=== PATIENT | female | born 1970 | race Two or more races ===

== ENCOUNTER 2022-10-06 08:49 | Outpatient (REF) | payer OTHER, SELFPAY ==
[2022-10-06 09:04] LABS: MANUAL DIFF FLAG NO
[2022-10-06 09:18] LABS: Basophils Absolute Auto 0.1 X10*3/uL (0.0-0.2); Basophils Percent Auto 0.8 % (0-2); Eosinophils Absolute Auto 0.2 X10*3/uL (0.0-0.4); Eosinophils Percent Auto 2.5 % (0-4); Hematocrit 41.1 % (37.0-47.0); Hemoglobin 12.4 g/dl (12.0-16.0); Imm Gran Abs Auto 0.02 X10*3/uL (0.00-0.03); Imm Gran Pct Auto 0.3 % (0.0-0.4); Lymphocytes Absolute Auto 2.2 X10*3/uL (1.2-4.9); Mean Corpuscular HGB Conc 30.2 g/dl (31.0-35.0); Mean Corpuscular Hemoglobin 26.4 pg (27.0-33.0); Mean Corpuscular Volume 87.4 fL (80.0-98.0); Mean Platelet Volume 9.9 fL (9.4-12.3); Monocytes Absolute Auto 0.4 X10*3/uL (0.1-1.2); Monocytes Percent Auto 5.8 % (2-11); Neutrophils Absolute Auto 4.4 x10*3/uL (2.0-8.3); Neutrophils Percent Auto 60.6 % (45-73); Platelet Count 452 X10*3/uL (160-400); Red Cell Distribution Width 12.8 % (11.0-16.0); White Blood Count 7.3 X10*3/uL (4.8-10.8)
[2022-10-06 09:22] LABS: Appearance Urine Clear; Color Urine Yellow; Glucose Urine UA Negative (Negative); Leukocyte Esterase Urine Negative (Negative); Nitrite Urine Negative (Negative); PH 5.5 (5.0-9.0); Specific Gravity - Urine 1.015 (1.005-1.025); Urine Blood Negative (Negative); Urine Ketones Negative (Negative); Urine Protein Negative (Neg-Trace)
[2022-10-06 10:07] LABS: Alanine Aminotransferase 12 U/L (0-31); Albumin Level 4.2 g/dL (3.5-5.0); Alkaline Phosphatase 111 U/L (39-117); Anion Gap 12 (12-20); Aspartate Amino Transferase 19 U/L (5-31); Bilirubin Total 0.6 mg/dL (0.0-1.0); Blood Urea Nitrogen 10 mg/dL (9-16); Calcium 9.9 mg/dL (8.4-10.2); Carbon Dioxide 26 mmol/L (22-29); Chloride 105 mmol/L (96-108); Cholesterol 218 mg/dL; Estimated Glomerular Filt Rate > 60; Glucose Fasting 95 mg/dL (60-99); HDL Cholesterol 58 mg/dL; LDL Cholesterol Calculated 141 mg/dl; Potassium 5.2 mmol/L (3.3-5.1); Sodium 138 mmol/L (135-145); Total Protein 7.4 g/dL (6.5-8.0); Triglycerides 95 mg/dL
[2022-10-06 10:23] LABS: TSH reflex Free T4 1.13 uIU/mL (0.32-4.0)
== END 2022-10-06 08:50 | disposition home or self-care (01) ==
LOC: HO.LAB 08:49
PROVIDERS: PCP Internal Medicine; Visit Provider Internal Medicine
DX: Z00.00 Encounter for general adult medical examination without abnormal findings (principal); E78.00 Pure hypercholesterolemia, unspecified; R30.0 Dysuria; E55.9 Vitamin D deficiency, unspecified
CPT/HCPCS: 36415; 80053; 80061; 81003; 82306; 84443; 85025

== ENCOUNTER 2024-01-22 10:28 | Outpatient (AMB) | payer OTHER, SELFPAY ==
[2024-01-22 10:32] VITALS: BP 136/88; PULSE 72; O2SAT 98; BMI 41.2
--- NOTE | 2024-01-22 10:32 | MHC.PC.OV ---
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 Senior Solutions Engineer: Not Required per policy Accompanied by: Self / Same As Patient Allergies pecan nut Allergy (Severe, Verified 01/22/24 11:19) HIVES/SWELLING sesame oil [SESAME OIL] Allergy (Severe, Verified 01/22/24 11:19) SWELLING sesame seed Allergy (Severe, Verified 01/22/24 11:19) SWELLING acetaminophen [From PERCOCET] Allergy (Intermediate, Verified 01/22/24 11:19) HIVES oxycodone [From PERCOCET] Allergy (Intermediate, Verified 01/22/24 11:19) HIVES Medication List - Last Reconciled 01/22/24 by El Zhao MD [id number] 8 mg iron-400 mcg-50 mcg (Centrum Silver Women) 1 tab PO DAILY Tobacco use date assessed: 01/22/24 Dental Screening Dental Screen Date: 01/22/24 Did you have a dental visit in the last 12 months?: No Did you have a dental problem in the last 6 months where you did not have access to dental care?: No Was dental information given to patient?: Patient has dentist HPI annual exam HPI Details Patient comes in today for her annual physical examination States that she feels okay She denies any headaches or dizziness Denies any chest pains, no SOB No nausea/vomiting, no abdominal pain No change in bowel habits noted Denies any acute urinary symptoms States that she had a total vaginal hysterectomy (no BSO) at [facility] back in 2009 and was advised then that she no longer needs to get her annual pap smear done She is due for her annual mammogram (she usually gets them done at [facility]) and is also due for her repeat screening colonoscopy (last done in 2019) [facility] Medical History (Updated 01/22/24 @ 12:02 by El Zhao MD) Vitamin D deficiency Morbid obesity with BMI of 40.0-44.9, adult Pure hypercholesterolemia GERD without esophagitis Surgical History (Updated 01/22/24 @ 11:22 by El Zhao MD) History of total vaginal hysterectomy (TVH) Hx of colonoscopy History of tubal ligation (~1996) History of elbow surgery (~2013) Social History Housing: Condominium Patient Tobacco Use Status: Never used Tobacco Tobacco use type: Cigarette e-Cigarette/Vaping Use: Never Used service: No Current occupational status: employed Cognitive needs: No Hearing needs: No Vision needs: Yes Questionnaire PHQ-9 Over the last 2 weeks, how often have you been bothered by any of the following problems? 1. Little interest or pleasure in doing things: not at all 2. Feeling down, depressed, or hopeless: not at all 3. Trouble falling or staying asleep, or sleeping too much: not at all 4. Feeling tired or having little energy: not at all 5. Poor appetite or overeating: not at all 6. Feeling bad about yourself - or that you are a failure or have let yourself or your family down: not at all 7. Trouble concentrating on things, such as reading the newspaper or watching television: not at all 8. Moving or speaking so slowly that other people could have noticed. Or the opposite - being so fidgety or restless that you have been moving around a lot more than usual: not at all 9. Thoughts that you would be better off or of hurting yourself in some way: not at all Total score: 0 Depression Screening Interpretation: Negative Depression Screening Done: Yes 87032 - PHQ-9 Billing: Yes Source: Developed by Drs. Saturnino Correia, Kimber Decker, Win Stack and colleagues, with an educational louise from [employer]. Thrive Questionnaire Date Thrive assessed: 01/22/24 I am a: Patient What is your living situation today?: I have a steady place to live Within the past 12 months, did the food you bought not last and you didn't have the money to get more?: Never true Within the past 12 months, did you worry whether your food would run out before you got money to buy more?: Never true Do you have trouble paying for medicines?: No Do you have trouble getting transportation to medical appointments?: No Do you have trouble paying your heating and electricity bill?: No Do you have trouble taking care of your child, family member or friend?: No Do you have trouble with day-to-day activities such as bathing, preparing meals, shopping, managing finances, etc.?: No Are you currently unemployed and looking for a job?: No Are you interested in more education?: No Please select the resources that you would like help with: None Currently or been in a relationship where the following occur: No concerns reported THRIVE Score: 0 AUDIT C Alcohol Use Questionnaire (AUDIT-C) 1. How often do you have a drink containing alcohol?: Never 3. How often do you have six or more drinks on one occasion?: Never Total Score: 0 Score Reviewed/Action Taken: Yes AVE-7 AMB Questionnaire AVE-7 Date AVE - 7 assessed: 01/22/24 Feeling nervous, anxious, or on edge: 0 = Not at all Not being able to stop or control worryin = Not at all Worrying too much about different things: 0 = Not at all Trouble relaxin = Not at all Being so restless that it is hard to sit still: 0 = Not at all Becoming easily annoyed or irritable: 0 = Not at all Feeling afraid as if something awful might happen: 0 = Not at all Total AVE-7 score (0-4 normal; 5-9 mild; 10-14 moderate; 15-21 severe): 0 Source: Developed by Drs. Saturnino Correia, Kimber Decker, Win Stack and colleagues, with an educational louise from [employer]. Review of Systems Const Denies chills, Denies fatigue, Denies fever(s), Denies headache(s) and Denies malaise Eyes Denies blurry vision, Denies change in vision, Denies irritation and Denies itchy eyes ENT Denies dysphagia, Denies dizziness, Denies otalgia, Denies headache(s), Denies nasal congestion, Denies neck pain, Denies odynophagia, Denies sinus pain and Denies sore throat Card Denies chest pain, Denies rapid heart rate, Denies irregular heart rhythm, Denies palpitations and Denies dyspnea Resp Denies chest congestion, Denies cough, Denies dyspnea and Denies wheezing GI Denies abdominal pain, Denies bloating, Denies constipation, Denies dysphagia, Denies heartburn, Denies diarrhea, Denies nausea, Denies odynophagia and Denies vomiting Denies hematuria, Denies urinary frequency, Denies dysuria, Denies urinary incontinence and Denies urinary urgency Musc Denies back pain, Denies arthralgias, Denies joint swelling, Denies muscle weakness and Denies neck pain Skin/Breast Denies breast pain, Denies breast mass, Denies change in pigmentation, Denies lesions, Denies rash and Denies unusual bruising Neuro Denies dizziness, Denies headache(s) and Denies paresthesias Psych Denies anxiety and Denies depression Endo Denies fatigue and Denies palpitations Cornelius/Lymph Denies easy bruising Aller/Immun Denies itchy eyes and Denies wheezing Physical exam (Primary Care) Vital Signs: Last Vital Signs Pulse 72 01/22/24 10:32 BP 136/88 01/22/24 10:32 Pulse Ox 98 01/22/24 10:32 Oxygen Delivery Method Room Air 01/22/24 10:32 BMI result Body Mass Index 41.2 Tobacco/Smoking Status: Tobacco use Status Tobacco use date assessed 01/22/24 01/22/24 10:33 Patient Tobacco Use Status Never used Tobacco 01/22/24 10:33 Tobacco use type Cigarette 01/22/24 10:33 e-Cigarette/Vaping Use Never Used 01/22/24 10:33 PHQ-9: PHQ-9 Score PHQ-9: Total score 0 01/22/24 10:33 Depression Screening Interpretation: Negative Thrive Assessment: Date of Thrive Assessment Date Thrive assessed 01/22/24 01/22/24 10:33 Currently or been in a relationship where the following occur: No concerns reported Const General: no acute distress, alert and awake Orientation/consciousness: patient oriented x3 HENMT Head: Yes normocephalic and Yes atraumatic Ears: external ears normal, TM's normal bilaterally and EAC's normal General nose exam: No nasal discharge present Face and sinus: Yes normal facial exam and Yes sinuses nontender Teeth and gingiva: dentition normal Throat: Yes posterior oropharynx normal and Yes tonsils normal (but appear more prominent that normal bilaterally (chronic)) Eyes Eyelids: Yes eyelids normal Conjunctivae: conjunctivae normal Pupils: Equal, round and reactive pupils present EOM: EOMs intact bilaterally Neck Neck: Yes supple and Yes lymphadenopathy ((+) palpable bilateral cervical LN (chronic) but no tenderness on palpation) Thyroid: Thyroid normal Resp Auscultation: clear to auscultation bilaterally, no rales and no wheezes Cardio Rate: regular rate Rhythm: regular rhythm Heart sounds: no murmurs GI Palpation (GI): Soft to palpation, nontender and No hepatosplenomegaly present Auscultation: normal bowel sounds General: Yes no CVA tenderness Back/Spine/Pelvis Back: no CVA tenderness Thoracic/Lumbar Spine: thoracic and lumbar spine normal to inspection Skin Lesions: no lesions Rashes: no rashes Neuro General: patient oriented x3, moves all extremities, no focal motor deficits and CN's II-XI intact bilaterally Cranial nerves: Yes Equal, round and reactive pupils present Cognition (Neuro): normal cognition Gait exam (Neuro): Normal gait present Extrem General: Yes no clubbing, cyanosis or edema Assessment and Plan Assessment & Plan (1) Annual physical exam: Code(s): Z00.00 - Encounter for general adult medical examination without abnormal findings Plan: Check labs She is now due for her repeat colonoscopy (last done in 2018) and for her annual breast cancer screening (which she usually gets done at [facility]) Will also send her for BMD for osteoporosis screening (2) Pure hypercholesterolemia: Code(s): E78.00 - Pure hypercholesterolemia, unspecified Plan: Have advised patient that her cholesterol levels were still elevated when they were last checked over a year ago in September 2022, with her total cholesterol at 218 mg/dl and LDL cholesterol at 141 mg/dl Reinforced low cholesterol diet Will recheck her fasting lipids [facility] for follow up (3) GERD without esophagitis: Code(s): K21.9 - Gastro-esophageal reflux disease without esophagitis Plan: Dietary restrictions reinforced She used to take Pantoprazole 40 mg QD but has not needed any Rx in a while now (4) Cervical lymphadenopathy: Code(s): R59.0 - Localized enlarged lymph nodes Plan: Patient states that she's always had frequent issues with her tonsils when she was growing up and that these are also likely a chronic issue for her but these do not appear to be active at this time as there are not significantly enlarged and are non-tender on palpation Will check her CBC again for follow up / further evaluation (5) Vitamin D deficiency: Code(s): E55.9 - Vitamin D deficiency, unspecified Plan: Will start her on Vitamin D supplements - Rx for Calcium carbonate plus Vitamin D3 sent to pharmacy (6) Morbid obesity with BMI of 40.0-44.9, adult: Code(s): E66.01 - Morbid (severe) obesity due to excess calories; Z68.41 - Body mass index [BMI] 40.0-44.9, adult Plan: Reinforced diet/exercise as tolerated/lose weight (7) Colon cancer screening: Code(s): Z12.11 - Encounter for screening for malignant neoplasm of colon Plan: Will refer her back to GI for repeat colonoscopy (8) Breast cancer screening by mammogram: Code(s): Z12.31 - Encounter for screening mammogram for malignant neoplasm of breast Plan: Will send her for her annual screening mammogram - patient usually gets her mammograms done at [facility] (9) Osteoporosis screening: Code(s): Z13.820 - Encounter for screening for osteoporosis Plan: Will send her for BMD - this will be her index screen Plan Follow up in 6 months Orders: Orders MM tomosynthesis screening BI Today Z12.31 - Encounter for screening mammogram for malignant neoplasm of breast C Reactive Protein Today R59.0 - Localized enlarged lymph nodes Complete Blood Count Auto Diff Today D64.9 - Anemia, unspecified, Z00.00 - Encounter for general adult medical examination without abnormal findings Comprehensive [place]. Panel Fast Today E78.00 - Pure hypercholesterolemia, unspecified, Z00.00 - Encounter for general adult medical examination without abnormal findings Lipid Panel Today E78.00 - Pure hypercholesterolemia, unspecified, Z00.00 - Encounter for general adult medical examination without abnormal findings TSH reflex Free T4 Today E78.00 - Pure hypercholesterolemia, unspecified, Z00.00 - Encounter for general adult medical examination without abnormal findings UA CC w/rflx Micro + Cult Today R30.0 - Dysuria, Z00.00 - Encounter for general adult medical examination without abnormal findings Vitamin D 25-OH Total Today E55.9 - Vitamin D deficiency, unspecified, Z00.00 - Encounter for general adult medical examination without abnormal findings Erythrocyte Sedimentation Rate Today M79.7 - Fibromyalgia, R59.0 - Localized enlarged lymph nodes XR DEXA axial skeleton Today Z78.0 - Asymptomatic menopausal state Referrals Gastroenterology Referral Z12.11 - Encounter for screening for malignant neoplasm of colon Medications: New calcium carbonate-vitamin D3 600 mg-25 mcg (1,000 unit) 1 cap PO DAILY 90 days 90 caps 3RF Coding Level of Care Code Est Pt Prev Care 40-64y(31415) Diagnoses Annual physical exam Z00.00 Pure hypercholesterolemia E78.00 GERD without esophagitis K21.9 Cervical lymphadenopathy R59.0 Vitamin D deficiency E55.9 Morbid obesity with BMI of 40.0-44.9, adult E66.01; Z68.41 Colon cancer screening Z12.11 Breast cancer screening by mammogram Z12.31 Osteoporosis screening Z13.820
== END 2024-01-22 11:30 | disposition home or self-care (01) ==
PROVIDERS: PCP Internal Medicine; Visit Provider Internal Medicine
DX: Z00.00 Encounter for general adult medical examination without abnormal findings (principal); E66.01 Morbid (severe) obesity due to excess calories; Z68.41 Body mass index [BMI] 40.0-44.9, adult; E78.00 Pure hypercholesterolemia, unspecified; K21.9 Gastro-esophageal reflux disease without esophagitis; R59.0 Localized enlarged lymph nodes; E55.9 Vitamin D deficiency, unspecified; Z12.11 Encounter for screening for malignant neoplasm of colon; Z12.31 Encounter for screening mammogram for malignant neoplasm of breast; Z13.820 Encounter for screening for osteoporosis
CPT/HCPCS: 99396

== ENCOUNTER 2024-02-18 08:13 | Outpatient (REF) | payer OTHER, SELFPAY ==
--- NOTE | ~2024-02-18 | MM_ITS ---
EXAMINATION: BONE DENSITOMETRY CLINICAL INDICATION: Asymptomatic menopausal state. COMPARISON: This is the patient's baseline examination. TECHNIQUE: Using a [employer] DXA System (software version: 13.1) manufactured by [employer], dual-energy x-ray absorptiometry was performed of the lumbar spine and left hip. The images are of good technical quality. Summary results are attached. FINDINGS: LEFT FEMUR, NECK: BMD 1.030 g/cm2, Z-score 0.4, T-score -0.1, normal. LEFT FEMUR, TOTAL: BMD 1.069 g/cm2, Z-score 0.5, T-score 0.5, normal. AP SPINE L1-L4: BMD 1.213 g/cm2, Z-score 0.2, T-score 0.3, normal. IDENTIFIED RISK FACTORS: Early menopause, secondary osteoporosis, hysterectomy. HISTORY OF FRACTURE: None listed. MEDICATIONS: Multivitamin. MM/XR DEXA axial skeleton IMPRESSION: 1. DIAGNOSIS: Normal bone density based on the lowest T-score value of -0.1 in the femoral neck applying World Health Organization criteria. 2. 10-YEAR FRACTURE RISK PREDICTION, FRAX: According to the guidelines, FRAX calculation should only be performed on patients in the osteopenia bone density category. Therefore, FRAX was not performed on this patient. 3. Treatment Recommendations: NOF guidelines recommend consideration for treatment in postmenopausal women and men age 50 and older presenting with the following: -A hip or vertebral (clinical or morphometric) fracture. -T-score less than or equal to -2.5 at the femoral neck or spine after appropriate evaluation to exclude secondary causes. -Low bone mass at the hip or spine and a 10-year fracture probability by FRAX of greater than or equal to 3% for hip fracture or greater than or equal to 20% for major osteoporotic fracture based on the [place] adapted WHO algorithm. 4. Other Recommendations: All treatment decisions require clinical judgment and consideration of individual patient factors, including patient preferences, comorbidities, previous drug use, risk factors not captured in the FRAX model (e.g. frailty, falls, vitamin D deficiency, increased bone turnover, interval significant decline in bone density) and possible under or overestimation of fracture risk by FRAX. FUTURE SCAN RECOMMENDATION: People with diagnosed cases of osteoporosis or at high risk for fracture should have regular bone mineral density tests. For patients eligible for Medicare, routine testing is allowed once every 2 years. The testing frequency can be increased to one year for patients who have rapidly progressing disease, those who are receiving or discontinuing medical therapy to restore bone mass, or have additional risk factors. Electronically signed by: Parker Wallace MD 02/26/2024 08:49 AM EDT RP
== END 2024-02-18 08:14 | disposition home or self-care (01) ==
LOC: HO.MAMMO 08:13
PROVIDERS: PCP Internal Medicine; Visit Provider Internal Medicine
DX: Z13.820 Encounter for screening for osteoporosis (principal); Z78.0 Asymptomatic menopausal state
CPT/HCPCS: 77080

== ENCOUNTER 2024-02-29 08:44 | Outpatient (REF) | payer SELFPAY ==
[2024-02-29 09:16] LABS: MANUAL DIFF FLAG NO
[2024-02-29 10:16] LABS: Alanine Aminotransferase 13 U/L (0-31); Albumin Level 3.9 g/dL (3.5-5.0); Alkaline Phosphatase 112 U/L (39-117); Anion Gap 11 (12-20); Aspartate Amino Transferase 20 U/L (5-31); Bilirubin Total 0.4 mg/dL (0.0-1.0); Blood Urea Nitrogen 12 mg/dL (9-16); C Reactive Protein 0.58 mg/dL (< or = 0.50); Calcium 9.7 mg/dL (8.4-10.2); Carbon Dioxide 25 mmol/L (22-29); Chloride 109 mmol/L (96-108); Cholesterol 209 mg/dL (<200); Estimated Glomerular Filt Rate > 60; Glucose Fasting 98 mg/dL (60-99); HDL Cholesterol 53 mg/dL (>40); LDL Cholesterol Calculated 136 mg/dL (<100); Potassium 4.1 mmol/L (3.3-5.1); Sodium 141 mmol/L (135-145); Total Protein 7.6 g/dL (6.5-8.0); Triglycerides 101 mg/dL (<150)
[2024-02-29 10:21] LABS: Basophils Absolute Auto 0.1 X10*3/uL (0.0-0.2); Basophils Percent Auto 0.8 % (0-2); Eosinophils Absolute Auto 0.2 X10*3/uL (0.0-0.4); Eosinophils Percent Auto 3.2 % (0-4); Hematocrit 39.1 % (37.0-47.0); Hemoglobin 12.2 g/dl (12.0-16.0); Imm Gran Abs Auto 0.01 X10*3/uL (0.00-0.03); Imm Gran Pct Auto 0.2 % (0.0-0.4); Lymphocytes Absolute Auto 2.3 X10*3/uL (1.2-4.9); Lymphocytes Percent Auto 36.1 % (20-40); Mean Corpuscular HGB Conc 31.2 g/dl (31.0-35.0); Mean Corpuscular Hemoglobin 27.1 pg (27.0-33.0); Mean Corpuscular Volume 86.7 fL (80.0-98.0); Mean Platelet Volume 10.2 fL (9.4-12.3); Monocytes Absolute Auto 0.4 X10*3/uL (0.1-1.2); Monocytes Percent Auto 6.7 % (2-11); Neutrophils Absolute Auto 3.4 x10*3/uL (2.0-8.3); Platelet Count 440 X10*3/uL (160-400); Red Blood Count 4.51 X10*6/uL (4.20-5.50); White Blood Count 6.3 X10*3/uL (4.8-10.8)
[2024-02-29 10:27] LABS: TSH reflex Free T4 1.43 uIU/mL (0.32-4.0); Vitamin D 25-OH Total 20.4 ng/mL (>30)
[2024-02-29 11:05] LABS: Erythrocyte Sedimentation Rate 28 MM/HR (0-20)
[2024-02-29 11:42] LABS: Appearance Urine Clear; Color Urine Yellow; Glucose Urine UA Negative (Negative); Leukocyte Esterase Urine Negative (Negative); Nitrite Urine Negative (Negative); PH 5.5 (5.0-9.0); Urine Blood Negative (Negative); Urine Ketones Negative (Negative); Urine Protein Negative (Neg-Trace)
== END 2024-02-29 08:45 | disposition home or self-care (01) ==
LOC: HO.LAB 08:44
PROVIDERS: PCP Internal Medicine; Visit Provider Internal Medicine
DX: Z00.00 Encounter for general adult medical examination without abnormal findings (principal); D64.9 Anemia, unspecified; E78.00 Pure hypercholesterolemia, unspecified; R59.0 Localized enlarged lymph nodes; R30.0 Dysuria; E55.9 Vitamin D deficiency, unspecified; M79.7 Fibromyalgia
CPT/HCPCS: 36415; 80053; 80061; 81003; 82306; 84443; 85025; 85652; 86140

== ENCOUNTER 2024-06-12 13:50 | Outpatient (AMB) | payer BC, SELFPAY ==
--- NOTE | 2024-06-12 14:02 | MHC.OFFVIS ---
Vital Signs 06/12/24 14:14 Height 5 ft Weight 214 lb 11.684 oz BMI 41.9 BP 160/91 H Blood Pressure Location Rt brachial Position Sitting Pulse 94 Intake Visit Reasons: pre colonoscopy Intake Note: Kristan presents as a new patient for colonoscopy screening. CC: Patient c/o constipation, hemorrhoids, and blood in stool sometimes. Last colonoscopy 5 years ago per patient. 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 She is referred by El Zhao. PMX Morbid obesity High cholesterol GERD Cervical lymphadenopathy Tubular adenoma * SURGICAL HISTORY Hysterectomy Tubal ligation Left elbow surgery Colonoscopy-2019= hyperplastic polyp Jeff b-datum; Laboratory Tests 02/29/24 09:09 WBC 6.3 Hgb 12.2 Hct 39.1 Plt Count 440 H Estimated GFR > 60 Total Bilirubin 0.4 AST 20 ALT 13 Alkaline Phosphatase 112 TSH 1.43 TODAYS VISIT She had 3 prior scopes and there were 3 TA's removed at [facility] [place] on her initial scope. She suffers CIC and when she is really back up she will have pain in the right flank. She will only move her bowels q 2-3 days and they are very hard. She has no response with all OTC laxatives and at times has had to use multiple enemas. Even with this she had to push hard. We will start a trial of Linzess at the highest dose of 290 and titrate to affect her side effect and consider other strategies if this does not work life changing the medication or adding an [id number] to this. The patient does have any family history of anybody else suffering severe constipation. Her very hard stools and frequent pushing does cause her to have some bleeding and painful hemorrhoids. She denies any cardiac or respiratory problems. No prior problems with anesthesia or sedation. No ID problems. She had prior TA's but she denies any known hx of CRC or polyps. [facility] Medical History (Updated 06/12/24 @ 14:38 by YOLIS Blancas) Annual physical exam Cervical cancer screening Colon cancer screening Osteoporosis screening Breast cancer screening by mammogram Vitamin D deficiency Morbid obesity with BMI of 40.0-44.9, adult Pure hypercholesterolemia GERD without esophagitis Surgical History (Updated 01/22/24 @ 11:22 by El Zhao MD) History of total vaginal hysterectomy (TVH) Hx of colonoscopy History of tubal ligation (~1996) History of elbow surgery (~2013) Social History Housing: Condominium Patient Tobacco Use Status: Never used Tobacco Tobacco use type: Cigarette e-Cigarette/Vaping Use: Never Used service: No Current occupational status: employed Cognitive needs: No Hearing needs: No Vision needs: Yes Review of Systems Const Denies fatigue, Denies fever(s), Denies night sweats, Denies poor appetite and Denies weight loss Eyes Details: glasses Reports requires corrective lenses ENT Reports Normal hearing present, Denies dental pain, Denies dysphagia, Denies hearing loss, Denies mouth pain, Denies odynophagia, Denies throat swelling, Denies tongue swelling and Reports other (Dentition adequate) Card Reports no additional complaints Resp Reports no additional complaints GI Details: Denies abdominal pain, Denies melena, Reports bloating, Reports hematochezia, Reports constipation, Denies GI cramping, Denies dysphagia, Denies excessive flatus, Denies early satiety, Denies heartburn, Denies diarrhea, Denies nausea, Denies odynophagia, Denies vomiting and Denies hematemesis Skin/Breast Denies pruritus, Denies lesions, Denies rash and Denies jaundice Neuro Reports Normal hearing present and Denies Abnormal speech present Endo Denies fatigue Aller/Immun Denies throat swelling and Denies tongue swelling Physical Exam Const General: cooperative, no acute distress, well developed and well groomed Nutritional Appearance: well nourished and obese Orientation/consciousness: oriented to person, oriented to place and oriented to time Limitations: No language barrier HEENT Head: Yes normocephalic and Yes atraumatic Eyes General: appearance normal, both eyes and all related structures Pupils: Equal, round and reactive pupils present Neck Neck: Yes normal visual inspection and Yes no lymphadenopathy Thyroid: Thyroid normal Resp Effort & Inspection: normal respiratory effort and able to speak in complete sentences Auscultation: clear to auscultation bilaterally Cardio Rate: regular rate Rhythm: regular rhythm Heart sounds: Normal, physiologic split S2 sound present Peripheral pulses: radial pulses present and posterior tibial pulses present GI Inspection: No distended, Yes Abdominal panniculus present, Yes obesity and Yes striae Palpation (GI): Soft to palpation, nontender, no guarding, not rigid and No hepatosplenomegaly present Percussion: Yes normal to percussion Auscultation: normal bowel sounds Rectal Exam - Female: deferred Abdomen image: 1. surgical scars Skin General skin exam: no rashes or lesions noted, turgor normal, skin not dry, no jaundice, No spider nevi and no striae Rashes: no rashes Nails: normal Neuro General: oriented to person, oriented to place and oriented to time Cranial nerves: Yes Equal, round and reactive pupils present and Yes Normal hearing present Speech: No Abnormal speech present Extrem General: Yes normal to inspection, No clubbing, No cyanosis and No edema Psych Appearance: grossly normal and well kempt Mental Status: mental status grossly normal Speech and movement: Normal speech and movement present Affect: normal affect Attitude: cooperative Thought process: Normal thought process present and not confabulating Thought content: Normal thought content present Insight: Good insight present (Psych) Judgement: Good judgement present (Psych) Assessment & Plan Assessment & Plan (1) Tubular adenoma of colon: Comment: Removed prior to 2019 uncertain where Code(s): D12.6 - Benign neoplasm of colon, unspecified Category: Medical (2) Morbid obesity with BMI of 40.0-44.9, adult: Code(s): E66.01 - Morbid (severe) obesity due to excess calories; Z68.41 - Body mass index [BMI] 40.0-44.9, adult Category: Medical (3) Chronic idiopathic constipation: Code(s): K59.04 - Chronic idiopathic constipation Category: Medical Plan She had 3 prior scopes and there were 3 TA's removed at [facility] [place] on her initial scope. She suffers CIC and when she is really back up she will have pain in the right flank. She will only move her bowels q 2-3 days and they are very hard. She has no response with all OTC laxatives and at times has had to use multiple enemas. Even with this she had to push hard. We will start a trial of Linzess at the highest dose of 290 and titrate to affect her side effect and consider other strategies if this does not work life changing the medication or adding an [id number] to this. The patient does have any family history of anybody else suffering severe constipation. Her very hard stools and frequent pushing does cause her to have some bleeding and painful hemorrhoids. She denies any cardiac or respiratory problems. No prior problems with anesthesia or sedation. No ID problems. She had prior TA's but she denies any known hx of CRC or polyps. Orders: Orders Colonoscopy - GI Use Only Today D12.6 - Benign neoplasm of colon, unspecified Medications: New sod sulf-pot chloride-mag sulf 1.479-0.188- 0.225 gram (Sutab) PO PER PKG DIR for colonoscopy prep 24 tabs 0RF linaclotide (Linzess) 290 mcg PO QAM 30 days 30 caps 6RF K59.04 - Chronic idiopathic constipation Coding Level of Care Code New Pt Level 3 (49884) Diagnoses Tubular adenoma of colon D12.6 Morbid obesity with BMI of 40.0-44.9, adult E66.01; Z68.41 Chronic idiopathic constipation K59.04
[2024-06-12 14:14] VITALS: BP 160/91; PULSE 94; BMI 41.9
== END 2024-06-12 15:12 | disposition home or self-care (01) ==
PROVIDERS: PCP Internal Medicine; Visit Provider Nurse Practitioner
DX: D12.6 Benign neoplasm of colon, unspecified (principal); E66.01 Morbid (severe) obesity due to excess calories; Z68.41 Body mass index [BMI] 40.0-44.9, adult; K59.04 Chronic idiopathic constipation
CPT/HCPCS: 99203

== ENCOUNTER → 2024-06-12 13:50 | Outpatient (BNVA) | payer SELFPAY | PROVIDERS: PCP Internal Medicine; Visit Provider Nurse Practitioner ==

== ENCOUNTER 2024-07-24 16:38 | Outpatient (AMB) | payer SELFPAY ==
--- NOTE | 2024-07-24 16:39 | A.OFFPC_ITS ---
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 Accompanied by: Self / Same As Patient Allergies pecan nut Allergy (Severe, Verified 07/24/24 17:06) HIVES/SWELLING sesame oil [SESAME OIL] Allergy (Severe, Verified 07/24/24 17:06) SWELLING sesame seed Allergy (Severe, Verified 07/24/24 17:06) SWELLING acetaminophen [From PERCOCET] Allergy (Intermediate, Verified 07/24/24 17:06) HIVES oxycodone [From PERCOCET] Allergy (Intermediate, Verified 07/24/24 17:06) HIVES dust Allergy (Unknown, Uncoded 07/24/24 17:06) hives Medication List - Last Reconciled 07/24/24 by El Zhao MD calcium carbonate-vitamin D3 600 mg-25 mcg (1,000 unit) 1 cap PO DAILY 90 days linaclotide (Linzess) 290 mcg PO QAM 30 days exnjovwa-kaf-tjfm-FA-vit K-lut 8 mg iron-400 mcg-50 mcg (Centrum Silver Women) 1 tab PO DAILY sod sulf-pot chloride-mag sulf 1.479-0.188- 0.225 gram (Sutab) PO PER PKG DIR fo r colonoscopy prep Tobacco use date assessed: 07/24/24 Dental Screening Dental Screen Date: 07/24/24 Did you have a dental visit in the last 12 months?: Yes Did you have a dental problem in the last 6 months where you did not have access to dental care?: No Was dental information given to patient?: Patient has dentist HPI 6 month f/u HPI Details Patient comes in today for her follow up visit States that she has been experiencing recurrent lower abdominal/pelvic pain lately Notes that the pain often feels worse when she is sitting as she feels more pressure over the pubic area of her pelvic bone She has also noticed increased pain over the same area with prolonged walking Patient reports that she had a bladder sling procedure done over 10 years ago and is concerned that her symptoms may be due to her sling now being out of place or malfunctioning States that she had the sling placed after her hysterectomy years ago when she was also noted to have bladder prolapse with increased symptoms She denies any dysuria, nocturia or urinary frequency States that she feels okay otherwise She denies any headaches or dizziness Denies any chest pains, no shortness of breath No nausea/vomiting, no abdominal pain No change in bowel habits noted States that she is scheduled for her repeat colonoscopy in August 2024 She would like to know how her labs and bone density that were both done back in January 2024 came out [facility] Medical History (Updated 07/24/24 @ 17:17 by El Zhao MD) Cervical cancer screening Colon cancer screening Osteoporosis screening Breast cancer screening by mammogram Vitamin D deficiency Morbid obesity with BMI of 40.0-44.9, adult Pure hypercholesterolemia GERD without esophagitis Surgical History History of total vaginal hysterectomy (TVH) Hx of colonoscopy History of tubal ligation (~1996) History of elbow surgery (~2013) Social History Housing: Condominium Patient Tobacco Use Status: Never used Tobacco Tobacco use type: Cigarette e-Cigarette/Vaping Use: Never Used service: No Current occupational status: employed Cognitive needs: No Hearing needs: No Vision needs: Yes Questionnaire PHQ-9 Over the last 2 weeks, how often have you been bothered by any of the following problems? 1. Little interest or pleasure in doing things: not at all 2. Feeling down, depressed, or hopeless: not at all 3. Trouble falling or staying asleep, or sleeping too much: not at all 4. Feeling tired or having little energy: not at all 5. Poor appetite or overeating: not at all 6. Feeling bad about yourself - or that you are a failure or have let yourself or your family down: not at all 7. Trouble concentrating on things, such as reading the newspaper or watching television: not at all 8. Moving or speaking so slowly that other people could have noticed. Or the opposite - being so fidgety or restless that you have been moving around a lot more than usual: not at all 9. Thoughts that you would be better off or of hurting yourself in some way: not at all Total score: 0 Depression Screening Interpretation: Negative Depression Screening Done: Yes 14692 - PHQ-9 Billing: Yes Source: Developed by Drs. Saturnino Correia, Kimber Decker, Win Stack and colleagues, with an educational louise from [employer]. Thrive Questionnaire Date Thrive assessed: 07/24/24 I am a: Patient What is your living situation today?: I have a steady place to live Within the past 12 months, did the food you bought not last and you didn't have the money to get more?: Never true Within the past 12 months, did you worry whether your food would run out before you got money to buy more?: Never true Do you have trouble paying for medicines?: No Do you have trouble getting transportation to medical appointments?: No Do you have trouble paying your heating and electricity bill?: No Do you have trouble taking care of your child, family member or friend?: No Do you have trouble with day-to-day activities such as bathing, preparing meals, shopping, managing finances, etc.?: No Are you currently unemployed and looking for a job?: No Are you interested in more education?: No Please select the resources that you would like help with: None Currently or been in a relationship where the following occur: No concerns reported THRIVE Score: 0 AUDIT C Alcohol Use Questionnaire (AUDIT-C) 1. How often do you have a drink containing alcohol?: Never 3. How often do you have six or more drinks on one occasion?: Never Total Score: 0 Score Reviewed/Action Taken: Yes AVE-7 AMB Questionnaire AVE-7 Date A[address] - 7 assessed: 07/24/24 Feeling nervous, anxious, or on edge: 0 = Not at all Not being able to stop or control worryin = Not at all Worrying too much about different things: 0 = Not at all Trouble relaxin = Not at all Being so restless that it is hard to sit still: 0 = Not at all Becoming easily annoyed or irritable: 0 = Not at all Feeling afraid as if something awful might happen: 0 = Not at all Total AVE-7 score (0-4 normal; 5-9 mild; 10-14 moderate; 15-21 severe): 0 Source: Developed by Drs. Saturnino Correia, Kimber Decker, Win Stack and colleagues, with an educational louise from [employer]. Review of Systems Const Denies chills, Denies fatigue, Denies fever(s) and Denies headache(s) ENT Denies dysphagia, Denies dizziness, Denies otalgia, Denies headache(s), Denies neck pain, Denies odynophagia and Denies sore throat Card Denies chest pain, Denies irregular heart rhythm, Denies palpitations and Denies dyspnea Resp Denies chest congestion, Denies cough and Denies dyspnea GI Denies abdominal pain, Denies constipation, Denies dysphagia, Denies heartburn, Denies diarrhea, Denies nausea, Denies odynophagia and Denies vomiting Denies urinary frequency, Denies dysuria, Reports pelvic pain (mostly over the lower pelvic/pubic area - see HPI) and Denies urinary urgency Musc Denies back pain, Denies arthralgias and Denies neck pain Skin/Breast Denies rash Neuro Denies dizziness, Denies headache(s) and Denies paresthesias Psych Denies anxiety and Denies depression Endo Denies fatigue and Denies palpitations Cornelius/Lymph Denies easy bruising Physical exam (Primary Care) Vital Signs: Last Vital Signs Pulse 93 07/24/24 16:40 BP 160/92 H 07/24/24 17:09 Pulse Ox 95 07/24/24 16:40 Oxygen Delivery Method Room Air 07/24/24 16:40 BMI result Body Mass Index 42.3 Tobacco/Smoking Status: Tobacco use Status Tobacco use date assessed 07/24/24 07/24/24 16:44 Patient Tobacco Use Status Never used Tobacco 07/24/24 16:44 Tobacco use type Cigarette 07/24/24 16:44 e-Cigarette/Vaping Use Never Used 07/24/24 16:44 PHQ-9: PHQ-9 Score PHQ-9: Total score 0 07/24/24 17:16 Depression Screening Interpretation: Negative Thrive Assessment: Date of Thrive Assessment Date Thrive assessed 07/24/24 07/24/24 16:44 Currently or been in a relationship where the following occur: No concerns reported Const General: no acute distress and alert HENMT Ears: TM's normal bilaterally and EAC's normal Throat: Yes posterior oropharynx normal and Yes tonsils normal (but appear more prominent that normal bilaterally (chronic)) Neck Neck: Yes supple and No lymphadenopathy Thyroid: Thyroid normal Resp Auscultation: clear to auscultation bilaterally, no rales and no wheezes Cardio Rate: regular rate Rhythm: regular rhythm Heart sounds: no murmurs GI Palpation (GI): Soft to palpation and nontender Auscultation: normal bowel sounds General: Yes no CVA tenderness Back/Spine/Pelvis Back: no CVA tenderness Thoracic/Lumbar Spine: thoracic and lumbar spine normal to inspection Skin Rashes: no rashes Extrem General: Yes no clubbing, cyanosis or edema Results Reviewed Results Reviewed: Laboratory Tests 02/29/24 09:09 WBC 6.3 Hgb 12.2 Hct 39.1 Plt Count 440 H ESR 28 H Sodium 141 Potassium 4.1 Creatinine 0.96 Estimated GFR > 60 Fasting Glucose 98 Calcium 9.7 AST 20 ALT 13 C-Reactive Protein 0.58 H Triglycerides 101 Cholesterol 209 H LDL Cholesterol, Calc 136 H HDL Cholesterol 53 25-OH Vitamin D Total 20.4 L TSH 1.43 Ur Specific Boley 1.020 Urine Protein Negative Urine Glucose (UA) Negative Urine Blood Negative Urine Nitrite Negative Ur Leukocyte Esterase Negative Coding Level of Care Code Est Pt Level 4 (50782) Diagnoses Pure hypercholesterolemia E78.00 GERD without esophagitis K21.9 Vitamin D deficiency E55.9 Pelvic pain R10.2 Chronic idiopathic constipation K59.04 Morbid obesity with BMI of 40.0-44.9, adult E66.01; Z68.41 Additional Codes PHQ-9 - 82809 - PHQ-9 Billing: Yes ([id number]) Assessment & Plan Assessment & Plan (1) Pure hypercholesterolemia: Code(s): E78.00 - Pure hypercholesterolemia, unspecified Category: Medical Plan: Results of her labs done back in January 2024 reviewed and discussed with patient - have advised her that her cholesterol levels were still elevated although they have improved slightly from her numbers back in 2022 Reinforce low-cholesterol diet Will have her recheck her labs and fasting lipids in 6 months before her annual physical exam for follow-up (2) GERD without esophagitis: Code(s): K21.9 - Gastro-esophageal reflux disease without esophagitis Category: Medical Plan: Dietary restrictions reinforced She used to take Pantoprazole 40 mg QD but has not needed any Rx in a while now (3) Vitamin D deficiency: Code(s): E55.9 - Vitamin D deficiency, unspecified Category: Medical Plan: Patient is advised that her vitamin-D level was still low her labs done back in January 2024 States that she has been taking multivitamins regularly but have advised her that this is not enough and that she should at least start back on her calcium plus vitamin-D supplement daily (4) Pelvic pain: Code(s): R10.2 - Pelvic and perineal pain Category: Medical Plan: Will send patient for pelvic ultrasound for further evaluation Will also refer her to [facility] for further evaluation and management - states that she tried contacting her previous indirect sales representative who performed her bladder sling procedure recently but was advised that her doctor already retired from active practice a few years ago (5) Chronic idiopathic constipation: Code(s): K59.04 - Chronic idiopathic constipation Category: Medical Plan: Is again encouraged on increased oral fluids and dietary fiber Continue Linzess 290 mcg QD Follow-up with GI as scheduled She is scheduled for her repeat colonoscopy in August 2024 (6) Morbid obesity with BMI of 40.0-44.9, adult: Code(s): E66.01 - Morbid (severe) obesity due to excess calories; Z68.41 - Body mass index [BMI] 40.0-44.9, adult Category: Medical Plan: Reinforced diet/exercise as tolerated/lose weight Plan Patient is also advised that her BMD done back in January 2024 came back normal To return as scheduled in December 2024 for her annual physical examination Orders: Orders US pelvic complete 07/24/24 R10.2 - Pelvic and perineal pain Complete Blood Count Auto Diff 01/02/25 D64.9 - Anemia, unspecified, Z00.00 - Encounter for general adult medical examination without abnormal findings Comprehensive [place]. Panel Fast 01/02/25 E78.00 - Pure hypercholesterolemia, unspecified, Z00.00 - Encounter for general adult medical examination without abnormal findings Lipid Panel 01/02/25 E78.00 - Pure hypercholesterolemia, unspecified, Z00.00 - Encounter for general adult medical examination without abnormal findings TSH reflex Free T4 01/02/25 E78.00 - Pure hypercholesterolemia, unspecified, Z00.00 - Encounter for general adult medical examination without abnormal findings UA CC w/rflx Micro + Cult 01/02/25 R30.0 - Dysuria, Z00.00 - Encounter for general adult medical examination without abnormal findings Vitamin D 25-OH Total 01/02/25 E55.9 - Vitamin D deficiency, unspecified, Z00.00 - Encounter for general adult medical examination without abnormal findings Referrals [facility] Referral R10.2 - Pelvic and perineal pain
[2024-07-24 16:40] VITALS: BP 160/100; PULSE 93; O2SAT 95; BMI 42.3
[2024-07-24 17:09] VITALS: BP 160/92
== END 2024-07-24 17:16 | disposition home or self-care (01) ==
PROVIDERS: PCP Internal Medicine; Visit Provider Internal Medicine
DX: E78.00 Pure hypercholesterolemia, unspecified (principal); E66.01 Morbid (severe) obesity due to excess calories; Z68.41 Body mass index [BMI] 40.0-44.9, adult; K21.9 Gastro-esophageal reflux disease without esophagitis; E55.9 Vitamin D deficiency, unspecified; R10.2 Pelvic and perineal pain; K59.04 Chronic idiopathic constipation

== ENCOUNTER → 2024-07-24 16:38 | Outpatient (BNVA) | payer SELFPAY | PROVIDERS: PCP Internal Medicine; Visit Provider Internal Medicine | DX: E78.00 Pure hypercholesterolemia, unspecified (principal); K21.9 Gastro-esophageal reflux disease without esophagitis; E55.9 Vitamin D deficiency, unspecified; R10.2 Pelvic and perineal pain; K59.04 Chronic idiopathic constipation; E66.01 Morbid (severe) obesity due to excess calories; Z68.41 Body mass index [BMI] 40.0-44.9, adult; Z79.899 Other long term (current) drug therapy | CPT/HCPCS: 96127; 99212 ==

== ENCOUNTER → 2024-08-07 08:29 | Outpatient (BNVA) | payer BC, SELFPAY | PROVIDERS: PCP Internal Medicine ==

== ENCOUNTER 2024-08-14 16:17 | Outpatient (REF) | payer BC, SELFPAY ==
--- NOTE | ~2024-08-14 | US_ITS ---
CLINICAL HISTORY: R10.2 - Pelvic and perineal pain US pelvis transabdominal with Doppler Comparison: CT/SR - ABD PELVIS WITH CONT 06135 - 10/10/18 15:03 EDT Findings: Transabdominal scanning performed for overall anatomy. Post hysterectomy. Right ovary 1.4 x 1.5 x 1.5 cm. Left ovary not visualized. Color Doppler and spectral tracings of the right ovary not provided. No free fluid. IMPRESSION: Post hysterectomy. Morphologically normal-appearing right ovary. Color Doppler/spectral tracing not provided however. Can not definitively exclude right ovarian torsion. If concern persists consider repeat. Nonvisualization of the left ovary. This document has been electronically signed by: Radu Owens MD on 08/14/2024 19:25:03
== END 2024-08-14 16:18 | disposition home or self-care (01) ==
LOC: HO.US 16:17
PROVIDERS: PCP Internal Medicine; Visit Provider Internal Medicine
DX: R10.2 Pelvic and perineal pain (principal)
CPT/HCPCS: 76856

== ENCOUNTER 2024-09-01 06:43 | Day surgery (SDC) | payer BC, SELFPAY ==
[2024-08-28 14:32] VITALS: BMI 42.2
--- NOTE | 2024-08-31 14:01 | HO.ANESPROP2 ---
HPI - Anesthesia Eval Consult details Narrative: 54yo F for Colonoscopy PMFSH Active Problems Active Problems: All Active Problems Annual physical exam (Acute) Pelvic pain (Acute) Chronic idiopathic constipation (Acute) Tubular adenoma of colon (Acute) Vitamin D deficiency (Acute) Cervical lymphadenopathy (Acute) Morbid obesity with BMI of 40.0-44.9, adult (Acute) Pure hypercholesterolemia (Acute) GERD without esophagitis (Acute) Past Medical History Medical History (Updated 07/24/24 @ 17:17 by El Zhao MD) Cervical cancer screening Colon cancer screening Osteoporosis screening Breast cancer screening by mammogram Vitamin D deficiency Morbid obesity with BMI of 40.0-44.9, adult Pure hypercholesterolemia GERD without esophagitis Surgical History Surgical History History of total vaginal hysterectomy (TVH) Hx of colonoscopy History of tubal ligation (~1996) History of elbow surgery (~2013) Social History Social History Housing: Condominium Patient Tobacco Use Status: Never used Tobacco Tobacco use type: Cigarette e-Cigarette/Vaping Use: Never Used service: No Current occupational status: employed Cognitive needs: No Hearing needs: No Vision needs: Yes Meds Allergies Allergy/AdvReac Type Severity Reaction Status Date / Time pecan nut Allergy Severe HIVES/SWELL Verified 07/24/24 17:06 ING sesame oil [SESAME OIL] Allergy Severe SWELLING Verified 07/24/24 17:06 sesame seed Allergy Severe SWELLING Verified 07/24/24 17:06 acetaminophen [From PERCOCET] Allergy Intermediate HIVES Verified 07/24/24 17:06 oxycodone [From PERCOCET] Allergy Intermediate HIVES Verified 07/24/24 17:06 dust Allergy Unknown hives Uncoded 07/24/24 17:06 Home Medications ?Medication ?Instructions ?Recorded ?Confirmed ?Last Taken ?Type ndejdsij-ecxu-vlhd 8 mg-folic 400 1 tab PO DAILY 10/01/22 08/28/24 Unknown History mcg-K 50 mcg-lutein 300 mcg tablet (Centrum Silver Women) Exam Height,Weight and Vital Signs: Height 5 ft Weight 97.976 kg Assessment and Plan Assessment Anesthesia Assessment: Chart Reviewed
[2024-09-01 07:48] VITALS: BP 150/83; PULSE 82; RESP 16; TEMP 36.8; O2SAT 98; BMI 42.2
[2024-09-01] MEDS: Lactated Ringers 1,000 ML 100 ML IVCONT (08:00)
--- NOTE | 2024-09-01 08:15 | MHC.SHP ---
Pre-Procedural Eval Section A - 24 Hr Update-Section A only Date of Service: 09/01/24 Section B - Complete if H&P > 30 days Chief Complaint: Chronic idiopathic constipation Relevant Family History (Specify if Yes): No Relevant Social History: None Present Medications: see Short Stay Collaborative assessment Medical History: Significant History (Cervical cancer screening Colon cancer screening Osteoporosis screening Breast cancer screening by mammogram Vitamin D deficiency Morbid obesity with BMI of 40.0-44.9, adult Pure hypercholesterolemia GERD without esophagitis) History of Previous Operations: Relevant previous surgery/procedure and date(s) (History of total vaginal hysterectomy (TVH) Hx of colonoscopy History of tubal ligation (~1996) History of elbow surgery (~2013)) Allergies: Allergies Allergy/AdvReac Type Severity Reaction Status Date / Time pecan nut Allergy Severe HIVES/SWELL Verified 07/24/24 17:06 ING sesame oil [SESAME OIL] Allergy Severe SWELLING Verified 07/24/24 17:06 sesame seed Allergy Severe SWELLING Verified 07/24/24 17:06 acetaminophen [From PERCOCET] Allergy Intermediate HIVES Verified 07/24/24 17:06 oxycodone [From PERCOCET] Allergy Intermediate HIVES Verified 07/24/24 17:06 dust Allergy Unknown hives Uncoded 07/24/24 17:06 Review of Systems Sugical H&P ROS: Negative: Constitution, Cardiovascular, Respiratory, Neurological, Psychiatric, Hem-Onc, Allergic/Immunologic, Gastrointestinal, Genitourinary, Musculoskeletal, Integumentary, Endocrine and Eyes/Ears/Nose/Throat Exam Surgical H&P Exam: Normal: HEENT, Normal: Heart, Normal: Lungs, Normal: Extremities, Normal: Abdomen, Normal: Skin and Normal: Neurological Plan Diagnosis/Plan: Unchanged I have reviewed the history and physical and performed a pertinent physical examination on my patient. No changes have occurred unless specified. Time Spent With Patient Time: Total time managing care of this patient today ____ minutes.
--- NOTE | 2024-09-01 08:23 | HO.ANESPROP2 ---
[facility] Active Problems Active Problems: All Active Problems Annual physical exam (Acute) Pelvic pain (Acute) Chronic idiopathic constipation (Acute) Tubular adenoma of colon (Acute) Vitamin D deficiency (Acute) Cervical lymphadenopathy (Acute) Morbid obesity with BMI of 40.0-44.9, adult (Acute) Pure hypercholesterolemia (Acute) GERD without esophagitis (Acute) Past Medical History Medical History Cervical cancer screening Colon cancer screening Osteoporosis screening Breast cancer screening by mammogram Vitamin D deficiency Morbid obesity with BMI of 40.0-44.9, adult Pure hypercholesterolemia GERD without esophagitis Functional capacity: independent ambulation Patient : No Family History Family history of problems with anesthesia: No Surgical History Surgical History History of total vaginal hysterectomy (TVH) Hx of colonoscopy History of tubal ligation (~1996) History of elbow surgery (~2013) History of Problems with Anesthesia: No Social History Social History Housing: Condominium Patient Tobacco Use Status: Never used Tobacco Tobacco use type: Cigarette e-Cigarette/Vaping Use: Never Used service: No Current occupational status: employed Cognitive needs: No Hearing needs: No Vision needs: Yes Meds Allergies Allergy/AdvReac Type Severity Reaction Status Date / Time pecan nut Allergy Severe HIVES/SWELL Verified 07/24/24 17:06 ING sesame oil [SESAME OIL] Allergy Severe SWELLING Verified 07/24/24 17:06 sesame seed Allergy Severe SWELLING Verified 07/24/24 17:06 acetaminophen [From PERCOCET] Allergy Intermediate HIVES Verified 07/24/24 17:06 oxycodone [From PERCOCET] Allergy Intermediate HIVES Verified 07/24/24 17:06 dust Allergy Unknown hives Uncoded 07/24/24 17:06 Active Medications: Current Medications Lactated Ringer's (Lr) 1,000 mls @ 100 mls/hr IVCONT .Q10H SHONNA Last Admin: 09/01/24 08:00 Dose: 100 mls/hr Home Medications ?Medication ?Instructions ?Recorded ?Confirmed ?Last Taken ?Type cznuzbfu-wani-kkit 8 mg-folic 400 1 tab PO DAILY 10/01/22 09/01/24 Unknown History mcg-K 50 mcg-lutein 300 mcg tablet (Centrum Silver Women) Exam Height,Weight and Vital Signs: Height 5 ft Weight 98.1 kg Last Vital Signs Temp 98.2 F 09/01/24 07:48 Pulse 82 09/01/24 07:48 Resp 16 09/01/24 07:48 BP 150/83 H 09/01/24 07:48 Pulse Ox 98 09/01/24 07:48 O2 Del Method Room Air 09/01/24 07:48 Airway Mallampati Class: III TM Dist: >3cm Neck ROM: Full Heart: RRR Lungs: CTA Assessment and Plan Assessment Anesthesia Assessment: Anesthesia Plan Discussed and Chart Reviewed Final Anesthetic Review Family History of Problems with Anesthesia: No History of Problems with Anesthesia: No NPO: Yes ASA Class: III Final Preanesthetic Review: Meds/Allgs Chart Reviewed, Consent Obtained/Reviewed and Anes Risks/Benef Reviewed Patient Risk: Intermediate Procedure Risk: Low Anesthetic Plan Anesthetic Plan: MAC: Disposition: Standard PACU
--- NOTE | 2024-09-01 08:53 | HO.OPN-COLON ---
Colonoscopy Operative Note Operative Note Date of Service: 09/01/24 Narrative: Date of Service: 09/01/24 Narrative: Operative Information Procedure Description: Colonoscopy Indication: screening Anesthesia: MAC COLONOSCOPY Instrument: Olympus variable stiffness pediatric scope 190L Colonoscopy Monitoring: Vital signs and clinical assessment, continuous EKG monitoring, Pulse oximetry, Carbon Dioxide monitoring and blood pressure monitoring were done throughout the procedure. Colon withdrawal time was 12 minutes. Procedure: The patient was placed in the left lateral decubitis position and pre-procedure medications were administered. After a digital rectal examination of the ano-rectum, the video colonoscope was inserted into the rectum and advanced through the colon to the cecum/TI. The colonoscope was slowly withdrawn in a retrograde panoramic fashion and the colon mucosa was carefully examined including a retroflexed view of the rectum. Findings and interventions are described below. Procedure Difficulty: easy Findings: Terminal Ileum-normal Cecum: 4-5 mm sessile polyp removed with cold forceps Ascending Colon: normal Transverse Colon -normal Descending Colon: 8-9 mm sessile polyp removed with cold snare Sigmoid Colon: normal Rectum: Retroflexion with small internal hemorrhoids seen, grade I Anorectum - normal Intervention: cold snare and cold forceps Colon preparation: [place] Bowel Preparation Scale Right colon; 2 Transverse colon: 2 Left colon; 1-2 (0 = Unprepared colon segment with mucosa not seen due to solid stool that cannot be cleared. 1 = Portion of mucosa of the colon segment seen, but other areas of the colon segment not well seen due to staining, residual stool and/or opaque liquid. 2 = Minor amount of residual staining, small fragments of stool and/or opaque liquid, but mucosa of colon segment seen well. 3 = Entire mucosa of colon segment seen well with no residual staining, small fragments of stool or opaque liquid) Impression and Post Procedure Diagnosis: colon polyps internal hemorrhoids Plan: High fiber diet leaflet Avoid straining at stool, epsom salts and sitz bath, anusol supps or cream Repeat Colonoscopy in 6-12 months due to polyps and fair prep on left side or earlier if clinically indicated Above findings were reviewed with the patient and relevant handouts were provided if indicated.
[2024-09-01 08:55] VITALS: BP 122/70; PULSE 86; RESP 16; TEMP 36.8; O2SAT 100
[2024-09-01 09:10] VITALS: BP 146/92; PULSE 66; RESP 16; TEMP 36.8; O2SAT 100
--- NOTE | 2024-09-01 12:06 | HO.POSTANES ---
Post Anesthesia Evaluation Post Anesthesia Evaluation Date of Service: 09/01/24 Vital Signs: Vital Signs Temp Pulse Resp BP Pulse Ox O2 Del Method 09/01/24 09:10 98.3 F 66 16 146/92 H 100 Room Air 09/01/24 08:55 98.3 F 86 16 122/70 100 Room Air 09/01/24 07:48 98.2 F 82 16 150/83 H 98 Room Air Anesthesia: Monitored Mental Status: Awake Pain Control: Satisfactory Nausea/Vomiting: None Hydration: Adequate Anesthesia-Related Issues: No Anes. Related Issues
== END 2024-09-01 09:46 | disposition home or self-care (01) ==
PROVIDERS: PCP Internal Medicine; Visit Provider Internal Medicine Gastroenterology
PROC: 0DJD8ZZ Inspection of Lower Intestinal Tract, Via Natural or Artificial Opening Endoscopic (ICD-10-PCS; CPT 45378; principal; 2024-09-01 08:20)
DX: K59.04 Chronic idiopathic constipation (principal); Z86.0101 Personal history of adenomatous and serrated colon polyps; D12.0 Benign neoplasm of cecum; D12.4 Benign neoplasm of descending colon; K64.0 First degree hemorrhoids; K21.9 Gastro-esophageal reflux disease without esophagitis; E78.00 Pure hypercholesterolemia, unspecified; R59.0 Localized enlarged lymph nodes; E55.9 Vitamin D deficiency, unspecified; M81.0 Age-related osteoporosis without current pathological fracture; E66.01 Morbid (severe) obesity due to excess calories; Z68.41 Body mass index [BMI] 40.0-44.9, adult; Z79.899 Other long term (current) drug therapy; Z91.018 Allergy to other foods; Z88.5 Allergy status to narcotic agent; Z98.890 Other specified postprocedural states
CPT/HCPCS: 45385; 45380; 88305; J2003; J2704

== ENCOUNTER → 2024-09-01 06:43 | Outpatient (BNV) | payer BC, SELFPAY | PROVIDERS: PCP Internal Medicine; Visit Provider Internal Medicine Gastroenterology | DX: Z12.11 Encounter for screening for malignant neoplasm of colon (principal); D12.0 Benign neoplasm of cecum; D12.4 Benign neoplasm of descending colon; K64.0 First degree hemorrhoids | CPT/HCPCS: 45380; 45385 ==

== ENCOUNTER 2024-12-19 14:48 | Emergency (ER) | payer BC, SELFPAY ==
--- NOTE | ~2024-12-19 | XR_ITS ---
CLINICAL HISTORY: pain s p inversion 3 view left ankle Comparison: None provided Findings: Bones intact. No dislocations. Calcaneal enthesophyte. No ankle effusion. No radiopaque foreign body. There is soft tissue edema. IMPRESSION: No acute fracture. This document has been electronically signed by: Luke Mann MD on 12/19/2024 16:16:47
--- NOTE | ~2024-12-19 | XR_ITS ---
CLINICAL HISTORY: pain s p inversion 3 view left foot Comparison: None provided Findings: No fractures or dislocations. Calcaneal enthesophytes. No ankle effusion. No radiopaque foreign body. IMPRESSION: 1. No acute findings. This document has been electronically signed by: Luke Mann MD on 12/19/2024 16:17:24
[2024-12-19 15:20] VITALS: BP 159/78; PULSE 85; RESP 16; TEMP 36.8; O2SAT 96; BMI 39.7
--- NOTE | 2024-12-19 15:24 | ED_ITS ---
HPI - Extremity Injury (Lower) General Chief Complaint: Extremity Injury, Lower Stated Complaint: l ankle inj Time Seen by Provider: 12/19/24 15:00 Source: patient Mode of arrival: ambulatory Limitations: no limitations History of Present Illness ED Provider: EDITH SMALL PA-C HPI Narrative: 54-year-old female with pmhx significant for GERD, constipation presents to the ED today for evaluation of left foot/ankle pain x3 days. She reports walking through her yard when she stepped into a pothole with her left foot, causing her to twist her roll. Admits to immediate pain to the outer aspect of the left ankle. She has been able to ambulate since however bearing weight does induce pain. Pain radiates up into her left knee. Reports increased swelling to the area. Denies numbness/tinglng/weakness. Related Data Home Medications ?Medication ?Instructions ?Recorded ?Confirmed [id number]-crhr-kcwq 8 mg-folic 400 1 tab PO DAILY 10/0109/01/24 mcg-K 50 mcg-lutein 300 mcg tablet (Centrum Silver Women) Previous Rx's ?Medication ?Instructions ?Recorded calcium 600 mg (as 1 cap PO DAILY 90 days #90 c aps 01/22/24 carbonate)-vitamin D3 25 mcg (1,000 unit) capsule linaclotide 290 mcg capsule 290 mcg PO QAM 30 days #30 caps 06/12/24 (Linzess) Allergies Allergy/AdvReac Type Severity Reaction Status Date / Time pecan nut Allergy Severe HIVES/SWELL Verified 12/19/24 15:21 ING sesame oil (SESAME OIL) Allergy Severe SWELLING Verified 12/19/24 15:21 sesame seed Allergy Severe SWELLING Verified 12/19/24 15:21 acetaminophen (From PERCOCET) Allergy Intermediate HIVES Verified 12/19/24 15:21 oxycodone (From PERCOCET) Allergy Intermediate HIVES Verified 12/19/24 15:21 dust Allergy Unknown hives Uncoded 07/24/24 17:06 Review of Systems Review of Systems: Constitutional: No fever, chills, fatigue, night sweats, weight changes ENT/Mouth: No ear pain, hearing loss, nasal congestion, sinus pain, rhinorrhea, sore throat Eyes: No eye pain, swelling, redness, vision changes, discharge Cardio: No chest pain, palpitations, HANEY, orthopnea, peripheral edema Pulm: No SOB, cough, sputum, wheezing, dyspnea, hemoptysis GI: No nausea, vomiting, hematemesis, abdominal pain, diarrhea, constipation, hematochezia, melena : No irregular bleeding, dysuria, frequency, urgency, hesitancy, hematuria, flank pain, urinary flow changes, urinary incontinence or retention MSK: No back pain, neck pain, joint pain, myalgias, +L ankle pain Skin: No lesions, rashes Neuro: No weakness, numbness, paresthesias, LOC, dizziness, headache Psych: No anxiety/panic, depression, SI/HI, AH/VH All other systems reviewed and are negative. [facility] Past Medical History Attestation statement: The following information was validated with the patient. Source: old records reviewed and nursing notes reviewed Medical History Cervical cancer screening Colon cancer screening Osteoporosis screening Breast cancer screening by mammogram Vitamin D deficiency Morbid obesity with BMI of 40.0-44.9, adult Pure hypercholesterolemia GERD without esophagitis Surgical History History of total vaginal hysterectomy (TVH) Hx of colonoscopy History of tubal ligation (~1996) History of elbow surgery (~2013) Social History Social History Housing: Condominium Patient Tobacco Use Status: Never used Tobacco Tobacco use type: Cigarette Smoked in Last 30 Days: No e-Cigarette/Vaping Use: Never Used Use of substances other than those prescribed or required for medical reasons: No Advance Directives: No Advance Directives Information Provided: No Do you have a plan to hurt others: No Plan Patient : No service: No Current occupational status: employed Cognitive needs: No Hearing needs: No Vision needs: Yes Physical Exam Vital Signs: Vital Signs: Last Vital Signs Temp 97.7 F 12/19/24 15:54 Pulse 83 12/19/24 15:54 Resp 14 12/19/24 15:54 BP 179/84 H 12/19/24 15:54 Pulse Ox 98 12/19/24 15:54 O2 Del Method Room Air 12/19/24 15:54 BMI result Body Mass Index 39.7 Hypertensive, vitals otherwise WNL General: Well appearing, in no acute distress. Skin: Warm, dry, intact. No rashes or lesions. Head: Normocephalic, atraumatic. EENT: Hearing is intact b/l. Conjunctiva clear. PERRLA. EOM intact. Moist mucous membranes.? Cardiac: Chest wall symmetric. RRR Lungs: Normal respiratory effort without accessory muscle use. CTA bilaterally Ext: +noted swelling to lateral malleolus of left ankle. Tender to palpation over lateral malleolus and dorsal aspect of foot. No deformity, no crepitus. No overlying skin changes/erythema or warmth. Full ROM intact to left ankle with pain induced on inversion and eversion. Able to move all toes. 2+ DP pulse intact. negative Box test. ambulating with limping gait. Compartments soft, compressible. Neuro: AOx3. Normal speech. Strength 5/5 intact throughout. Sensation intact to light touch. NV intact distally. Psych: Appropriate mood and affect. Responds appropriately to questions. Course Course Course Narrative: This is an RME: Additional HPI, ROS, PE not included below will be deferred to primary provider. RME assessment and note performed by: Penny Mohamud PA-C This is a 37-incv-nlj-female who presents to the ER with a complaint of left ankle pain x 3 days. Rolled ankle 3 days ago. TTP overlying dorsum of the foot and lateral ankle. Strong DP pulse. Plan: Xrays Reevaluation(s) Reevaluation #1: 5866 -- X-ray left foot/ankle without noted fracture. No tissue abnormalities. Patient has an ankle sprain. James wrap applied and crutches provided. May bear weight as tolerated. If symptoms continue, advised to follow up with PCP and/or ortho. Referral provided. Advised Tylenol and Motrin at home as needed. educated on rice therapy. Patient has remained stable throughout ED visit today. Discussed worrisome signs and symptoms and when to return to the ED. All questions answered at this time. Patient is agreeable with disposition and stable for discharge. Medications Administered Discontinued Medications Generic Name Dose Route Start Last Admin Trade Name Freq PRN Reason Stop Dose Admin Ketorolac Tromethamine 30 mg 12/19/24 15:52 12/19/24 16:04 Ketorolac Tromethamine 30 Mg/Ml Vial IM 12/19/24 15:53 30 mg ONCE ONE Administration Medical Decision Making Medical Decision Making MDM Narrative: 54-year-old female with pmhx significant for GERD, constipation presents to the ED today for evaluation of left foot/ankle pain x3 days. Patient is hyper tensive, afebrile. She is well-appearing and in no acute distress. On exam, noted swelling to lateral malleolus of left ankle. Tender to palpation over lateral malleolus and dorsal aspect of foot. No deformity, no crepitus. No overlying skin changes/erythema or warmth. Full ROM intact to left ankle with pain induced on inversion and eversion. Able to move all toes. 2+ DP pulse intact. negative Box test. ambulating with limping gait. Compartments soft, compressible. Differential diagnosis includes MSK sprain/strain, fracture, dislocation, contusion, tendonitis. Presentation not consistent with gout, pseudogout, Lyme arthritis, septic joint. Unlikely neurovascular compromise, threat to limb, compartment syndrome, DVT. Plan for xrs, pain control, re-evaluation. Differential Diagnosis Differential Diagnoses: The differential diagnosis associated with the presentation includes as above. Admission/Observation not indicated. Independent Interpretation I performed an independent interpretation of an: Plain X-Ray Interpretation: xr left ankle foot/ankle without fracture Radiology Impression Discussion of test interpretation with radiology: I have reviewed the radiologist's reading. Radiologist Impression: Date of Service: 12/19/24 Procedure(s): XR foot LT min 3V Accession Number(s): [id number] cc: El Zhao MD; Penny Demarco~ CLINICAL HISTORY: pain s p inversion 3 view left foot Comparison: None provided Findings: No fractures or dislocations. Calcaneal enthesophytes. No ankle effusion. No radiopaque foreign body. IMPRESSION: 1. No acute findings. This document has been electronically signed by: Luke Mann MD on 12/19/2024 16:17:24 Date of Service: 12/19/24 Procedure(s): XR ankle LT min 3V Accession Number(s): [id number] cc: El Zhao MD; Penny Demarco~ CLINICAL HISTORY: pain s p inversion 3 view left ankle Comparison: None provided Findings: Bones intact. No dislocations. Calcaneal enthesophyte. No ankle effusion. No radiopaque foreign body. There is soft tissue edema. IMPRESSION: No acute fracture. This document has been electronically signed by: Luke Mann MD on 12/19/2024 16:16:47 Independent Historian Clinical information obtained from an independent historian. History obtained from or confirmed by: Spouse External Record Review External record reviewed: Inpatient record Prescription Management I considered prescription management with: Pain Medication Social Determinants Patient?s care significantly limited by Social Determinants of Health including: Other Social Determinant of Health Procedures Orthopedic Splinting/Casting Injury #1: Side: left Lower Extremity Injury Location: ankle and foot Lower Extremity Immobilizer: James wrap Other Orthopedic Equipment: crutches Critical Care Time Critical Care Time Critical Care Time: No Discharge Plan Discharge Clinical Impression: Left ankle sprain Patient Disposition: Home, Self-Care Instructions: Ankle Sprain (ED), Crutch Instructions (ED), How to Use an Elastic Bandage (ED), P.R.I.C.E. Treatment (ED) Additional Instructions: You were evaluated in the ED today for left ankle pain. Your x-rays do not show fracture. You likely sprained your ankle. see home care instructions. An james wrap was applied today for compression. You have been provided crutches. You may bear weight as tolerated. You may take Tylenol and Motrin at home as needed. Utilize RICE therapy - rest, ice, compress, elevate. If symptoms continue over the next week or two, I advise that you follow up with your primary care provider. You may also contact our orthopedic office. I have provided you with a referral. You may reach out to them, they will not call you. Return with any new or worsening symptoms. In the case of an emergency call 911. Prescriptions: No Action Centrum Silver Women 8 mg iron-400 mcg-300 mcg tablet 1 tab PO DAILY calcium carbonate-vitamin D3 600 mg-25 mcg (1,000 unit) capsule 1 cap PO DAILY 90 Days Qty: 90 3RF Linzess 290 mcg capsule 290 mcg PO QAM 30 Days Qty: 30 6RF [place]: [facility] [place] Group] Referral Note: ankle sprain El Zhao MD [Primary Care Provider, Internal Medicine] Print Language: Azeri
[2024-12-19 15:54] VITALS: BP 179/84; PULSE 83; RESP 14; TEMP 36.5; O2SAT 98
--- NOTE | 2024-12-19 15:57 | PC.NURSE ---
Patient A&O x 3. Patient presents to ED c/o left ankle pain rated 10/10 radiates toward knee. Patient twisted ankle on and the pain has increased since then. Numbness in toes and top of foot. +CMS +ROM. Denies SOB - thinners. No redness/swelling noted in LLE. Patient hypertensive 179/84 all other VSS. Xray completed, results pending. Plan of care on going
[2024-12-19] MEDS: Ketorolac Tromethamine 30 MG/ML VIAL IM (16:04)
--- NOTE | 2024-12-19 16:51 | PC.NURSE ---
James wrap applied, patient tolerated crutch training.
[2024-12-19 17:02] VITALS: BP 179/84; PULSE 83; RESP 14; TEMP 36.5; O2SAT 98
== END 2024-12-19 17:02 | disposition home or self-care (01) ==
PROVIDERS: Emergency Provider Emergency Medicine Emergency Medical Services; PCP Internal Medicine
DX: S93.492A Sprain of other ligament of left ankle, initial encounter (principal); X50.1XXA Overexertion from prolonged static or awkward postures, initial encounter; M25.572 Pain in left ankle and joints of left foot; Y93.01 Activity, walking, marching and hiking; Y92.017 Garden or yard in single-family (private) house as the place of occurrence of the external cause; Y99.8 Other external cause status
CPT/HCPCS: 73610; 73630; 96372; 99284; J1885

== ENCOUNTER → 2024-12-19 15:27 | Outpatient (BNV) | payer BC, SELFPAY | PROVIDERS: Emergency Provider Emergency Medicine Emergency Medical Services; PCP Internal Medicine; Visit Provider Nuclear Medicine | DX: M77.32 Calcaneal spur, left foot (principal); M79.672 Pain in left foot | CPT/HCPCS: 73610; 73630 ==

== ENCOUNTER 2025-01-04 14:04 | Outpatient (AMB) | payer BC, SELFPAY ==
--- NOTE | 2025-01-04 14:06 | A.OFFVIS_ITS ---
Vital Signs 01/04/25 14:12 Height 5 ft 1 in Weight 210 lb BMI 39.7 Intake Visit Reasons: ED f/u-Lt ankle sprain Intake Note: Kristan is a 54 year old female who presents today for an ER follow up of left ankle sprain, DOI 12/17/24. Patient reports that she was walking and did not notice a hole in the ground due to long grass. She twisted ankle and fell onto her knees. [place] [facility] [place] where x-rays were taken, placed in an james wrap and crutches were given. Currently her pain wraps around her ankle and travels up to her knee. Intermittent numbness and tingling however this improved with improvement in her swelling. Finds no relief with Advil. Finds most relief with applying compression with james wrap. Allergies pecan nut Allergy (Severe, Verified 01/04/25 14:12) HIVES/SWELLING sesame oil (SESAME OIL) Allergy (Severe, Verified 01/04/25 14:12) SWELLING sesame seed Allergy (Severe, Verified 01/04/25 14:12) SWELLING acetaminophen (From PERCOCET) Allergy (Intermediate, Verified 01/04/25 14:12) HIVES oxycodone (From PERCOCET) Allergy (Intermediate, Verified 01/04/25 14:12) HIVES dust Allergy (Unknown, Uncoded 01/04/25 14:12) hives Medication List - Last Reconciled 01/04/25 by Darlin Rubio PA-C calcium carbonate-vitamin D3 600 mg-25 mcg (1,000 unit) 1 cap PO DAILY 90 days linaclotide (Linzess) 290 mcg PO QAM 30 days yhjvnsnz-gei-atmm-FA-vit K-lut 8 mg iron-400 mcg-50 mcg (Centrum Silver Women) 1 tab PO DAILY HPI HPI ED f/u-Lt ankle sprain: Details: 54-year-old female presents to the office today for an injury she sustained to her left ankle on 12/17/2024. She states she was walking outside when she stepped in a hole and twisted the ankle. She was seen in the emergency depart ment where x-rays were obtained and she was given an James wrap and referred to our office for ortho eval. [facility] Medical History Cervical cancer screening Colon cancer screening Osteoporosis screening Breast cancer screening by mammogram Vitamin D deficiency Morbid obesity with BMI of 40.0-44.9, adult Pure hypercholesterolemia GERD without esophagitis Surgical History History of total vaginal hysterectomy (TVH) Hx of colonoscopy History of tubal ligation (~1996) History of elbow surgery (~2013) Social History Housing: Condominium Patient Tobacco Use Status: Never used Tobacco Tobacco use type: Cigarette e-Cigarette/Vaping Use: Never Used service: No Current occupational status: employed Cognitive needs: No Hearing needs: No Vision needs: Yes Review of Systems Const All systems reviewed & are unremarkable except as noted in HPI and below Physical Exam Vital Signs: BMI result Body Mass Index 39.7 Const General: cooperative and no acute distress Orientation/consciousness: patient oriented x3 Resp Effort & Inspection: normal respiratory effort and able to speak in complete sentences Cardio Peripheral pulses: Peripheral pulses 2+ throughout Neuro General: patient oriented x3 Extrem Other: Left ankle normal to inspection with mild tenderness over the soft tissues of the medial and lateral side of the ankle. No tenderness over the Achilles tendon or along the ankle mortise. She has good range of motion without crepitus or laxity. Neurovascularly intact. Assessment & Plan Assessment & Plan (1) Left ankle sprain: Code(s): S93.402A - Sprain of unspecified ligament of left ankle, initial encounter Category: Medical Plan: Patient was fit for a tall boot weightbearing as tolerated she was also given a lace-up ankle brace to transition to in 2 weeks and she will also begin a course of physical therapy to begin range of motion gentle strength and proprioceptive training. I educated her on occasional flare-ups where she should use anti- inflammatories, rest and ice and elevate. Patient will see me back as needed unless symptoms arise. Coding Level of Care Code New Pt Level 3 (88414) Complex EM visit Add On G2211 Diagnoses Left ankle sprain S93.402A
[2025-01-04 14:12] VITALS: BMI 39.7
== END 2025-01-04 14:58 | disposition home or self-care (01) ==
LOC: HO.HOS 14:05
PROVIDERS: PCP Internal Medicine; Visit Provider Physician Assistant
DX: S93.402A Sprain of unspecified ligament of left ankle, initial encounter (principal)
CPT/HCPCS: 99203

== ENCOUNTER 2025-01-22 12:50 | Outpatient (AMB) | payer BC, SELFPAY ==
[2025-01-22 13:00] VITALS: BP 128/72; PULSE 75; TEMP 36.3; O2SAT 98; BMI 40.8
--- NOTE | 2025-01-22 13:00 | A.OFFPC_ITS ---
Vital Signs 01/22/25 13:00 Height 5 ft 1 in Weight 216 lb BMI 40.8 BP 128/72 Blood Pressure Location Lt brachial Position Sitting Pulse 75 Pulse Source Pulse Oximeter Temp 97.3 F Temp Source Temporal Artery Scan Pulse Oximetry (%) 98 Oxygen Delivery Method Room Air Intake Visit Reasons: Annual Exam Allergies pecan nut Allergy (Severe, Verified 01/22/25 13:46) HIVES/SWELLING sesame oil (SESAME OIL) Allergy (Severe, Verified 01/22/25 13:46) SWELLING sesame seed Allergy (Severe, Verified 01/22/25 13:46) SWELLING acetaminophen (From PERCOCET) Allergy (Intermediate, Verified 01/22/25 13:46) HIVES oxycodone (From PERCOCET) Allergy (Intermediate, Verified 01/22/25 13:46) HIVES dust Allergy (Unknown, Uncoded 01/22/25 13:46) hives Medication List - Last Reconciled 01/22/25 by El Zhao MD calcium carbonate-vitamin D3 600 mg-25 mcg (1,000 unit) 1 cap PO DAILY 90 days linaclotide (Linzess) 290 mcg PO QAM 30 days aaapfhqc-amx-cgpv-FA-vit K-lut 8 mg iron-400 mcg-50 mcg (Centrum Silver Women) 1 tab PO DAILY Tobacco use date assessed: 01/22/25 Dental Screening Dental Screen Date: 01/22/25 Did you have a dental visit in the last 12 months?: No Did you have a dental problem in the last 6 months where you did not have access to dental care?: No Was dental information given to patient?: No HPI Annual Exam HPI Details Patient comes in today for her annual physical examination States that she feels okay She denies any headaches or dizziness Denies any chest pains, no increased SOB No nausea/vomiting, no abdominal pain No change in bowel habits noted She denies any acute urinary symptoms She was not able to get her labs done prior to coming in for her appointment today - will try to get these done ELIZABETH States that she had a total vaginal hysterectomy (no BSO) at [facility] back in 2009 and was advised then that she no longer needs to get her annual pap smear done Patient states that she has not been experiencing any hot flashes or menopausal symptoms lately States that she had her annual mammogram done at [facility] a couple of months ago She underwent a repeat colonoscopy with Dr. Coffey back in August 2024 - was advised that due to residual staining on the bowel wall (poor prep), she will need a repeat colonoscopy in 6 months (March 2025) [facility] Medical History (Updated 01/22/25 @ 16:12 by El Zhao MD) Breast cancer screening by mammogram Cervical cancer screening Colon cancer screening Osteoporosis screening Vitamin D deficiency Morbid obesity with BMI of 40.0-44.9, adult Pure hypercholesterolemia GERD without esophagitis Surgical History History of total vaginal hysterectomy (TVH) Hx of colonoscopy History of tubal ligation (~1996) History of elbow surgery (~2013) Social History Housing: Condominium Patient Tobacco Use Status: Never used Tobacco Tobacco use type: Cigarette e-Cigarette/Vaping Use: Never Used service: No Current occupational status: employed Cognitive needs: No Hearing needs: No Vision needs: Yes Questionnaire PHQ-9 Over the last 2 weeks, how often have you been bothered by any of the following problems? 1. Little interest or pleasure in doing things: not at all 2. Feeling down, depressed, or hopeless: not at all 3. Trouble falling or staying asleep, or sleeping too much: not at all 4. Feeling tired or having little energy: not at all 5. Poor appetite or overeating: not at all 6. Feeling bad about yourself - or that you are a failure or have let yourself or your family down: not at all 7. Trouble concentrating on things, such as reading the newspaper or watching television: not at all 8. Moving or speaking so slowly that other people could have noticed. Or the opposite - being so fidgety or restless that you have been moving around a lot more than usual: not at all 9. Thoughts that you would be better off or of hurting yourself in some way: not at all Total score: 0 Depression Screening Interpretation: Negative Depression Screening Done: Yes 86558 - PHQ-9 Billing: Yes Source: Developed by Drs. Saturnino Correia, Kimber B.Win Holm and colleagues, with an educational louise from [employer]. Thrive Questionnaire Date Thrive assessed: 01/22/25 I am a: Patient What is your living situation today?: I have a steady place to live Within the past 12 months, did the food you bought not last and you didn't have the money to get more?: Never true Within the past 12 months, did you worry whether your food would run out before you got money to buy more?: Never true Do you have trouble paying for medicines?: No Do you have trouble getting transportation to medical appointments?: No Do you have trouble paying your heating and electricity bill?: No Do you have trouble taking care of your child, family member or friend?: No Do you have trouble with day-to-day activities such as bathing, preparing meals, shopping, managing finances, etc.?: No Are you currently unemployed and looking for a job?: No Are you interested in more education?: No Please select the resources that you would like help with: None Currently or been in a relationship where the following occur: No concerns reported THRIVE Score: 0 AUDIT C Alcohol Use Questionnaire (AUDIT-C) 1. How often do you have a drink containing alcohol?: Never 3. How often do you have six or more drinks on one occasion?: Never Total Score: 0 Score Reviewed/Action Taken: Yes AVE-7 AMB Questionnaire AVE-7 Date AVE - 7 assessed: 01/22/25 Feeling nervous, anxious, or on edge: 0 = Not at all Not being able to stop or control worryin = Not at all Worrying too much about different things: 0 = Not at all Trouble relaxin = Not at all Being so restless that it is hard to sit still: 0 = Not at all Becoming easily annoyed or irritable: 0 = Not at all Feeling afraid as if something awful might happen: 0 = Not at all Total AVE-7 score (0-4 normal; 5-9 mild; 10-14 moderate; 15-21 severe): 0 Source: Developed by Drs. Saturnino Correia, Wni Borges and colleagues, with an educational louise from [employer]. Review of Systems Const Denies chills, Denies fatigue, Denies fever(s), Denies headache(s) and Denies malaise Eyes Denies blurry vision, Denies change in vision, Denies irritation and Denies itchy eyes ENT Denies dysphagia, Denies dizziness, Denies otalgia, Denies headache(s), Denies nasal congestion, Denies neck pain, Denies odynophagia, Denies sinus pain and Denies sore throat Card Denies chest pain, Denies rapid heart rate, Denies irregular heart rhythm, Denies palpitations and Denies dyspnea Resp Denies chest congestion, Denies cough, Denies dyspnea and Denies wheezing GI Denies abdominal pain, Denies bloating, Denies constipation, Denies dysphagia, Denies heartburn, Denies diarrhea, Denies nausea, Denies odynophagia and Denies vomiting Denies hematuria, Denies urinary frequency, Denies dysuria, Denies urinary incontinence and Denies urinary urgency Musc Denies back pain, Denies arthralgias, Denies joint swelling, Denies muscle weakness and Denies neck pain Skin/Breast Denies breast pain, Denies breast mass, Denies change in pigmentation, Denies lesions, Denies rash and Denies unusual bruising Neuro Denies dizziness, Denies headache(s) and Denies paresthesias Psych Denies anxiety and Denies depression Endo Denies fatigue and Denies palpitations Cornelius/Lymph Denies easy bruising Aller/Immun Denies itchy eyes and Denies wheezing Physical exam (Primary Care) Vital Signs: Last Vital Signs Temp 97.3 F 01/22/25 13:00 Pulse 75 01/22/25 13:00 BP 128/72 01/22/25 13:00 Pulse Ox 98 01/22/25 13:00 Oxygen Delivery Method Room Air 01/22/25 13:00 BMI result Body Mass Index 40.8 Tobacco/Smoking Status: Tobacco use Status Tobacco use date assessed 01/22/25 01/22/25 13:09 Patient Tobacco Use Status Never used Tobacco 01/22/25 13:09 Tobacco use type Cigarette 01/22/25 13:09 e-Cigarette/Vaping Use Never Used 01/22/25 13:09 PHQ-9: PHQ-9 Score PHQ-9: Total score 0 01/22/25 13:47 Depression Screening Interpretation: Negative Thrive Assessment: Date of Thrive Assessment Date Thrive assessed 01/22/25 01/22/25 13:09 Currently or been in a relationship where the following occur: No concerns reported Const General: no acute distress, alert and awake Orientation/consciousness: patient oriented x3 HENMT Head: Yes normocephalic and Yes atraumatic Ears: external ears normal, TM's normal bilaterally and EAC's normal General nose exam: No nasal discharge present Face and sinus: Yes normal facial exam and Yes sinuses nontender Teeth and gingiva: dentition normal Throat: Yes posterior oropharynx normal and Yes tonsils normal (no TP congestion) Eyes Eyelids: Yes eyelids normal Conjunctivae: conjunctivae normal Pupils: Equal, round and reactive pupils present EOM: EOMs intact bilaterally Neck Neck: Yes no lymphadenopathy and Yes supple Thyroid: Thyroid normal Resp Auscultation: clear to auscultation bilaterally, no rales and no wheezes Cardio Rate: regular rate Rhythm: regular rhythm Heart sounds: no murmurs GI Palpation (GI): Soft to palpation, nontender and No hepatosplenomegaly present Auscultation: normal bowel sounds General: Yes no CVA tenderness Back/Spine/Pelvis Back: no CVA tenderness Thoracic/Lumbar Spine: thoracic and lumbar spine normal to inspection Skin Lesions: no lesions Rashes: no rashes Neuro General: patient oriented x3, moves all extremities, no focal motor deficits and CN's II-XI intact bilaterally Cranial nerves: Yes Equal, round and reactive pupils present Cognition (Neuro): normal cognition Gait exam (Neuro): Normal gait present Extrem General: Yes no clubbing, cyanosis or edema Coding Level of Care Code Est Pt Prev Care 40-64y(03072) Diagnoses Annual physical exam Z00.00 Pure hypercholesterolemia E78.00 GERD without esophagitis K21.9 Vitamin D deficiency E55.9 Chronic idiopathic constipation K59.04 Morbid obesity with BMI of 40.0-44.9, adult E66.01; Z68.41 Breast cancer screening by mammogram Z12.31 Additional Codes PHQ-9 - 27004 - PHQ-9 Billing: Yes ([id number]) Assessment & Plan Assessment & Plan (1) Annual physical exam: Code(s): Z00.00 - Encounter for general adult medical examination without abnormal findings Category: Medical Plan: Patient is instructed to go and get her previously ordered labs done ELIZABETH to complete her annual exam today States that she had a total vaginal hysterectomy (no BSO) at [facility] back in 2009 and was advised then that she no longer needs to get her annual pap smear done Patient states that she has not been experiencing any hot flashes or menopausal symptoms lately States that she had her annual mammogram done at [facility] a couple of months ago She underwent a repeat colonoscopy with Dr. Coffey back in August 2024 - was advised that due to residual staining on the bowel wall (poor prep), she will need a repeat colonoscopy in 6 months (March 2025) - referral for repeat colonoscopy placed for March 2025 (2) Pure hypercholesterolemia: Code(s): E78.00 - Pure hypercholesterolemia, unspecified Category: Medical Plan: Have reminded patient that her cholesterol levels were still elevated when they were last checked in January 2024, with her total cholesterol at 209 mg/dl and LDL cholesterol at 136 mg/dl Reinforced low-cholesterol diet Will have her recheck her labs and fasting lipids ELIZABETH for follow-up (3) GERD without esophagitis: Code(s): K21.9 - Gastro-esophageal reflux disease without esophagitis Category: Medical Plan: Dietary restrictions reinforced She used to take Pantoprazole 40 mg QD but has not needed any Rx in a while now (4) Vitamin D deficiency: Code(s): E55.9 - Vitamin D deficiency, unspecified Category: Medical Plan: Continue OTC Vitamin D3 1000 units QD (5) Chronic idiopathic constipation: Code(s): K59.04 - Chronic idiopathic constipation Category: Medical Plan: She is again encouraged on increased oral fluids and dietary fiber Continue Linzess 290 mcg QD Follow-up with GI as scheduled (6) Morbid obesity with BMI of 40.0-44.9, adult: Code(s): E66.01 - Morbid (severe) obesity due to excess calories; Z68.41 - Body mass index [BMI] 40.0-44.9, adult Category: Medical Plan: Reinforced diet/exercise as tolerated/lose weight (7) Breast cancer screening by mammogram: Code(s): Z12.31 - Encounter for screening mammogram for malignant neoplasm of breast Category: Medical Plan: Will send patient for her annual mammogram Plan Follow up in 6 months Orders: Orders MM tomosynthesis screening BI Today Z12.31 - Encounter for screening mammogram for malignant neoplasm of breast Referrals Gastroenterology Referral Z12.11 - Encounter for screening for malignant neoplasm of colon
== END 2025-01-22 14:01 | disposition home or self-care (01) ==
LOC: HO.HMCH 12:51
PROVIDERS: PCP Internal Medicine; Visit Provider Internal Medicine
DX: Z00.00 Encounter for general adult medical examination without abnormal findings (principal); E78.00 Pure hypercholesterolemia, unspecified; E66.01 Morbid (severe) obesity due to excess calories; Z68.41 Body mass index [BMI] 40.0-44.9, adult; K21.9 Gastro-esophageal reflux disease without esophagitis; E55.9 Vitamin D deficiency, unspecified; K59.04 Chronic idiopathic constipation; Z12.31 Encounter for screening mammogram for malignant neoplasm of breast

== ENCOUNTER → 2025-01-22 12:50 | Outpatient (BNVA) | payer BC, SELFPAY | PROVIDERS: PCP Internal Medicine; Visit Provider Internal Medicine | DX: Z00.00 Encounter for general adult medical examination without abnormal findings (principal); E78.00 Pure hypercholesterolemia, unspecified; K21.9 Gastro-esophageal reflux disease without esophagitis; E55.9 Vitamin D deficiency, unspecified; K59.04 Chronic idiopathic constipation; E66.01 Morbid (severe) obesity due to excess calories; Z68.41 Body mass index [BMI] 40.0-44.9, adult | CPT/HCPCS: 96127 ==

== ENCOUNTER 2025-01-25 08:43 | Outpatient (REF) | payer BC, SELFPAY ==
[2025-01-25 08:56] LABS: MANUAL DIFF FLAG NO
[2025-01-25 09:19] LABS: Appearance Urine Clear; Glucose Urine UA Negative (Negative); PH 5.5 (5.0-9.0); Specific Gravity - Urine 1.020 (1.005-1.025)
[2025-01-25 09:23] LABS: Hematocrit 40.3 % (37.0-47.0); Hemoglobin 12.1 g/dl (12.0-16.0); Imm Gran Abs Auto 0.02 X10*3/uL (0.00-0.03); Imm Gran Pct Auto 0.3 % (0.0-0.4); Lymphocytes Absolute Auto 2.2 X10*3/uL (1.2-4.9); Mean Corpuscular HGB Conc 30.0 g/dl (31.0-35.0); Mean Corpuscular Hemoglobin 26.1 pg (27.0-33.0); Mean Corpuscular Volume 86.9 fL (80.0-98.0); NRBC Abs Auto 0.000 X10*3/uL (0.0-0.012); NRBC Pct Auto 0.0 /100WBC (0.0-0.2); Platelet Count 419 X10*3/uL (160-400); Red Blood Count 4.64 X10*6/uL (4.20-5.50); White Blood Count 6.8 X10*3/uL (4.8-10.8)
[2025-01-25 09:56] LABS: Alanine Aminotransferase 13 U/L (0-31); Albumin Level 4.2 g/dL (3.5-5.0); Alkaline Phosphatase 112 U/L (39-117); Anion Gap 10 (12-20); Aspartate Amino Transferase 22 U/L (5-31); Blood Urea Nitrogen 12 mg/dL (9-16); Calcium 9.5 mg/dL (8.4-10.2); Carbon Dioxide 26 mmol/L (22-29); Chloride 109 mmol/L (96-108); Cholesterol 206 mg/dL (<200); Estimated Glomerular Filt Rate 54; HDL Cholesterol 53 mg/dL (>40); Potassium 4.5 mmol/L (3.3-5.1); Sodium 140 mmol/L (135-145); Total Protein 8.0 g/dL (6.5-8.0); Triglycerides 124 mg/dL (<150)
== END 2025-01-25 08:44 | disposition home or self-care (01) ==
LOC: HO.LAB 08:43
PROVIDERS: PCP Internal Medicine; Visit Provider Internal Medicine
DX: Z00.00 Encounter for general adult medical examination without abnormal findings (principal); D64.9 Anemia, unspecified; E78.00 Pure hypercholesterolemia, unspecified; E55.9 Vitamin D deficiency, unspecified; R30.0 Dysuria
CPT/HCPCS: 36415; 80053; 80061; 81003; 82306; 84443; 85025

== ENCOUNTER 2025-02-24 07:45 | Day surgery (SDC) | payer BC, SELFPAY ==
[2025-02-22 14:06] VITALS: BMI 42.2
--- NOTE | 2025-02-23 12:28 | HO.ANESPROP2 ---
Documented by User: Yamile Ramirez NP 02/23/25 12:35 HPI - Anesthesia Eval Consult details Narrative: 54yo F for Colonoscopy PMFSH Active Problems Active Problems: All Active Problems Breast cancer screening by mammogram (Acute) Annual physical exam (Acute) Pelvic pain (Acute) Chronic idiopathic constipation (Acute) Tubular adenoma of colon (Acute) Vitamin D deficiency (Acute) Cervical lymphadenopathy (Acute) Morbid obesity with BMI of 40.0-44.9, adult (Acute) Pure hypercholesterolemia (Acute) GERD without esophagitis (Acute) Past Medical History Medical History (Updated 01/22/25 @ 16:12 by El Zhao MD) Breast cancer screening by mammogram Cervical cancer screening Colon cancer screening Osteoporosis screening Vitamin D deficiency Morbid obesity with BMI of 40.0-44.9, adult Pure hypercholesterolemia GERD without esophagitis Family History Family history of problems with anesthesia: No Surgical History Surgical History History of total vaginal hysterectomy (TVH) Hx of colonoscopy History of tubal ligation (~1996) History of elbow surgery (~2013) History of Problems with Anesthesia: No Social History Social History Housing: Condominium Patient Tobacco Use Status: Never used Tobacco Tobacco use type: Cigarette e-Cigarette/Vaping Use: Never Used Use of substances other than those prescribed or required for medical reasons: No Advance Directives: No Advance Directives Information Provided: Yes service: No Current occupational status: employed Cognitive needs: No Hearing needs: No Vision needs: Yes Meds Allergies Allergy/AdvReac Type Severity Reaction Status Date / Time pecan nut Allergy Severe HIVES/SWELL Verified 01/22/25 13:46 ING sesame oil (SESAME OIL) Allergy Severe SWELLING Verified 01/22/25 13:46 sesame seed Allergy Severe SWELLING Verified 01/22/25 13:46 acetaminophen (From PERCOCET) Allergy Intermediate HIVES Verified 01/22/25 13:46 oxycodone (From PERCOCET) Allergy Intermediate HIVES Verified 01/22/25 13:46 dust Allergy Unknown hives Uncoded 01/22/25 13:46 Home Medications ?Medication ?Instructions ?Recorded ?Confirmed ?Last Taken ?Type yrsnltmx-abyh-hout 8 mg-folic 400 1 tab PO DAILY 10/01/22 01/22/25 Unknown History mcg-K 50 mcg-lutein 300 mcg tablet (Centrum Silver Women) Exam Height,Weight and Vital Signs: Height 5 ft Weight 98.1 kg Pertinent Lab Results Pertinent Lab Results: Laboratory Tests 01/25/25 08:54 WBC 6.8 Hgb 12.1 Hct 40.3 Plt Count 419 H Sodium 140 Potassium 4.5 Chloride 109 H Carbon Dioxide 26 BUN 12 Creatinine 1.06 Assessment and Plan Final Anesthetic Review Family History of Problems with Anesthesia: No History of Problems with Anesthesia: No Documented by User: Taisha Darden NP 02/23/25 12:44 HPI - Anesthesia Eval Consult details Narrative: 54yo F for Colonoscopy BMI 42 PMFSH Past Medical History Medical History (Updated 01/22/25 @ 16:12 by El Zhao MD) Breast cancer screening by mammogram Cervical cancer screening Colon cancer screening Osteoporosis screening Vitamin D deficiency Morbid obesity with BMI of 40.0-44.9, adult Pure hypercholesterolemia GERD without esophagitis Surgical History Surgical History History of total vaginal hysterectomy (TVH) Hx of colonoscopy History of tubal ligation (~1996) History of elbow surgery (~2013) Social History Social History Housing: Condominium Patient Tobacco Use Status: Never used Tobacco Tobacco use type: Cigarette e-Cigarette/Vaping Use: Never Used Use of substances other than those prescribed or required for medical reasons: No Advance Directives: No Advance Directives Information Provided: Yes service: No Current occupational status: employed Cognitive needs: No Hearing needs: No Vision needs: Yes Meds Allergies Allergy/AdvReac Type Severity Reaction Status Date / Time pecan nut Allergy Severe HIVES/SWELL Verified 01/22/25 13:46 ING sesame oil (SESAME OIL) Allergy Severe SWELLING Verified 01/22/25 13:46 sesame seed Allergy Severe SWELLING Verified 01/22/25 13:46 acetaminophen (From PERCOCET) Allergy Intermediate HIVES Verified 01/22/25 13:46 oxycodone (From PERCOCET) Allergy Intermediate HIVES Verified 01/22/25 13:46 dust Allergy Unknown hives Uncoded 01/22/25 13:46 Home Medications ?Medication ?Instructions ?Recorded ?Confirmed ?Last Taken ?Type ztbiabyt-ojsx-xzko 8 mg-folic 400 1 tab PO DAILY 10/01/22 01/22/25 Unknown History mcg-K 50 mcg-lutein 300 mcg tablet (Centrum Silver Women) Documented by User: Garfield Villanueva MD 02/24/25 09:57 PMFSH Past Medical History Medical History (Updated 01/22/25 @ 16:12 by El Zhao MD) Breast cancer screening by mammogram Cervical cancer screening Colon cancer screening Osteoporosis screening Vitamin D deficiency Morbid obesity with BMI of 40.0-44.9, adult Pure hypercholesterolemia GERD without esophagitis Surgical History Surgical History History of total vaginal hysterectomy (TVH) Hx of colonoscopy History of tubal ligation (~1996) History of elbow surgery (~2013) Social History Social History Housing: Condominium Patient Tobacco Use Status: Never used Tobacco Tobacco use type: Cigarette e-Cigarette/Vaping Use: Never Used Use of substances other than those prescribed or required for medical reasons: No Advance Directives: No Advance Directives Information Provided: Yes service: No Current occupational status: employed Cognitive needs: No Hearing needs: No Vision needs: Yes Meds Allergies Allergy/AdvReac Type Severity Reaction Status Date / Time pecan nut Allergy Severe HIVES/SWELL Verified 01/22/25 13:46 ING sesame oil (SESAME OIL) Allergy Severe SWELLING Verified 01/22/25 13:46 sesame seed Allergy Severe SWELLING Verified 01/22/25 13:46 acetaminophen (From PERCOCET) Allergy Intermediate HIVES Verified 01/22/25 13:46 oxycodone (From PERCOCET) Allergy Intermediate HIVES Verified 01/22/25 13:46 dust Allergy Unknown hives Uncoded 01/22/25 13:46 Home Medications ?Medication ?Instructions ?Recorded ?Confirmed ?Last Taken ?Type zeqzkiql-ezay-jzby 8 mg-folic 400 1 tab PO DAILY 10/01/22 01/22/25 Unknown History mcg-K 50 mcg-lutein 300 mcg tablet (Centrum Silver Women) Exam Airway Mallampati Class: II TM Dist: <=3cm Neck ROM: Full Loose/Missing/Broken Teeth: No Heart: ok Lungs: ok Assessment and Plan Assessment Anesthesia Assessment: Anesthesia Plan Discussed and Chart Reviewed Final Anesthetic Review NPO: Yes ASA Class: III Final Preanesthetic Review: No Changes in Pt Med Stat, Meds/Allgs Chart Reviewed, Consent Obtained/Reviewed and Anes Risks/Benef Reviewed Patient Risk: Intermediate Procedure Risk: Low Anesthetic Plan Anesthetic Plan: MAC: and Agree w/ Assess. and Plan Disposition: Standard PACU
[2025-02-24 08:52] VITALS: BMI 42.1
[2025-02-24 09:01] VITALS: BP 148/81; PULSE 74; RESP 16; TEMP 36.4; O2SAT 97
[2025-02-24] MEDS: Lactated Ringers 1,000 ML 100 ML IVCONT (09:02)
--- NOTE | 2025-02-24 09:02 | MHC.SHP ---
Pre-Procedural Eval Section A - 24 Hr Update-Section A only Date of Service: 02/24/25 Section B - Complete if H&P > 30 days Chief Complaint: Benign neoplasm of colon, unspecified Relevant Family History (Specify if Yes): No Relevant Social History: None Present Medications: see Short Stay Collaborative assessment Medical History: Significant History (Breast cancer screening by mammogram Cervical cancer screening Colon cancer screening Osteoporosis screening Vitamin D deficiency Morbid obesity with BMI of 40.0-44.9, adult Pure hypercholesterolemia GERD without esophagitis) History of Previous Operations: Relevant previous surgery/procedure and date(s) (History of total vaginal hysterectomy (TVH) Hx of colonoscopy History of tubal ligation (~1996) History of elbow surgery (~2013)) Allergies: Allergies Allergy/AdvReac Type Severity Reaction Status Date / Time pecan nut Allergy Severe HIVES/SWELL Verified 01/22/25 13:46 ING sesame oil (SESAME OIL) Allergy Severe SWELLING Verified 01/22/25 13:46 sesame seed Allergy Severe SWELLING Verified 01/22/25 13:46 acetaminophen (From PERCOCET) Allergy Intermediate HIVES Verified 01/22/25 13:46 oxycodone (From PERCOCET) Allergy Intermediate HIVES Verified 01/22/25 13:46 dust Allergy Unknown hives Uncoded 01/22/25 13:46 Review of Systems Sugical H&P ROS: Negative: Constitution, Cardiovascular, Respiratory, Neurological, Psychiatric, Hem-Onc, Allergic/Immunologic, Gastrointestinal, Genitourinary, Musculoskeletal, Integumentary, Endocrine and Eyes/Ears/Nose/Throat Exam Surgical H&P Exam: Normal: HEENT, Normal: Heart, Normal: Lungs, Normal: Extremities, Normal: Abdomen, Normal: Skin and Normal: Neurological Plan Diagnosis/Plan: Unchanged I have reviewed the history and physical and performed a pertinent physical examination on my patient. No changes have occurred unless specified. Time Spent With Patient Time: Total time managing care of this patient today ____ minutes.
--- NOTE | 2025-02-24 10:00 | P.OPN-COLO_ITS ---
Colonoscopy Operative Note Operative Note Date of Service: 02/24/25 Narrative: Operative Information Procedure Description: Colonoscopy Indication: hx of colon polyps Anesthesia: MAC COLONOSCOPY Instrument: Olympus variable stiffness pediatric scope 190L Colonoscopy Monitoring: Vital signs and clinical assessment, continuous EKG monitoring, Pulse oximetry, Carbon Dioxide monitoring and blood pressure monitoring were done throughout the procedure. Colon withdrawal time was 9 minutes. Procedure: The patient was placed in the left lateral decubitis position and pre-procedure medications were administered. After a digital rectal examination of the ano-rectum, the video colonoscope was inserted into the rectum and advanced through the colon to the cecum/TI. The colonoscope was slowly withdrawn in a retrograde panoramic fashion and the colon mucosa was carefully examined including a retroflexed view of the rectum. Findings and interventions are described below. Procedure Difficulty: easy Findings: Terminal Ileum-normal Cecum:normal right sided retrofelxion- normal Ascending Colon: normal Transverse Colon -normal Descending Colon:normal Sigmoid Colon: mild to moderate diverticulosis, 5-6 mm sessile polyp removed with cold snare Rectum: Retroflexion with small internal hemorrhoids seen, grade I Anorectum - normal Intervention: cold snare Colon preparation: [place] Bowel Preparation Scale Right colon; 2 Transverse colon: 2 Left colon; 2 (0 = Unprepared colon segment with mucosa not seen due to solid stool that cannot be cleared. 1 = Portion of mucosa of the colon segment seen, but other areas of the colon segment not well seen due to staining, residual stool and/or opaque liquid. 2 = Minor amount of residual staining, small fragments of stool and/or opaque liquid, but mucosa of colon segment seen well. 3 = Entire mucosa of colon segment seen well with no residual staining, small fragments of stool or opaque liquid) Impression and Post Procedure Diagnosis: diverticulosis colon polyp internal hemorrhoids Plan: High fiber diet leaflet Avoid straining at stool, epsom salts and sitz bath, anusol supps or cream Repeat Colonoscopy in 3-4 years due to prior hx of colon polyps or earlier if clinically indicated Above findings were reviewed with the patient and relevant handouts were provided if indicated.
[2025-02-24 10:07] VITALS: BP 125/84; PULSE 84; RESP 16; TEMP 36.8; O2SAT 100
[2025-02-24 10:23] VITALS: BP 159/99; PULSE 78; RESP 16; O2SAT 99
[2025-02-24 10:35] VITALS: BP 169/95; PULSE 69; RESP 16; TEMP 36.7; O2SAT 99
== END 2025-02-24 11:25 | disposition home or self-care (01) ==
PROVIDERS: PCP Internal Medicine; Visit Provider Internal Medicine Gastroenterology
PROC: 0DJD8ZZ Inspection of Lower Intestinal Tract, Via Natural or Artificial Opening Endoscopic (ICD-10-PCS; CPT 45378; principal; 2025-02-24 10:20)
DX: Z12.11 Encounter for screening for malignant neoplasm of colon (principal); K63.5 Polyp of colon; K57.30 Diverticulosis of large intestine without perforation or abscess without bleeding; K64.0 First degree hemorrhoids; Z86.0101 Personal history of adenomatous and serrated colon polyps; E78.5 Hyperlipidemia, unspecified; K21.9 Gastro-esophageal reflux disease without esophagitis; K59.04 Chronic idiopathic constipation; E66.9 Obesity, unspecified; Z68.41 Body mass index [BMI] 40.0-44.9, adult; Z79.899 Other long term (current) drug therapy
CPT/HCPCS: 45385; 88305; J2003; J2704

== ENCOUNTER → 2025-02-24 07:45 | Outpatient (BNV) | payer BC, SELFPAY | PROVIDERS: PCP Internal Medicine; Visit Provider Internal Medicine Gastroenterology | DX: Z12.11 Encounter for screening for malignant neoplasm of colon (principal); Z86.0100 Personal history of colon polyps, unspecified; D12.5 Benign neoplasm of sigmoid colon; K57.30 Diverticulosis of large intestine without perforation or abscess without bleeding; K64.0 First degree hemorrhoids | CPT/HCPCS: 45385 ==

== ENCOUNTER 2025-03-19 16:08 | Outpatient (REF) | payer BC, SELFPAY | END 2025-03-19 16:09 | disposition home or self-care (01) | LOC: HO.MAMMO 16:08 | PROVIDERS: PCP Internal Medicine; Visit Provider Internal Medicine | DX: Z12.31 Encounter for screening mammogram for malignant neoplasm of breast (principal) | CPT/HCPCS: 77063; 77067 ==

== ENCOUNTER → 2025-03-19 16:30 | Outpatient (BNV) | payer BC, SELFPAY | PROVIDERS: PCP Internal Medicine; Visit Provider Radiology Body Imaging | DX: Z12.31 Encounter for screening mammogram for malignant neoplasm of breast (principal) | CPT/HCPCS: 77063; 77067 ==